=== PATIENT | female | born 1960 | race Caucasian/White ===

== ENCOUNTER 2025-03-18 03:45 | Emergency (ER) | payer MEDICARE, SELFPAY ==
--- OUTSIDE RECORDS SUMMARY | 2025-01-31 11:00 | XMS_ITS | Encounter Summary ---
Author Organization [facility] Address [address] [place] [address] [address] [place] [address] Care Team Providers Care Boom Master Name Role Phone Ann Martínez Primary Care Provider [phone] Ann Martínez Unavailable [phone] Reason for Referral * [facility] Proc/Supply (Routine) - AuthorizedSpecialtyDiagnoses / Procedures Referred By ContactReferred To Contact Procedures INFLUENZA (FLUAD) IM VACCINE - 65 YEARS AND UP [facility] FLU VACCINE ADJUVANT IM Ann Martínez PA [address] [facility] [place] [address] Phone: tel: fax: Referral IDStatusReasonStart DateExpiration DateVisits RequestedVisits [id number] Continuity of Care MASTER Reason for Visit * ReasonCommentsAWV-Annual Medicare Wellness VisitPatient is here for medicare exam. Encounter Details DateTypeDepartmentCare Team (Latest Contact Info)Ysschnjsjzh91/12/2025 11:00 AM CSTOffice Visit [facility] [address] [place] [id number] Ann Martínez PA [address] [facility] [place] [address] Routine general medical examination at a health care facility (Primary Dx); Hypothyroidism (acquired); Raynaud's disease without gangrene; History of colon polyps; Screening, lipid; Screening for osteoporosis; Postmenopause; Screening mammogram for breast cancer; Chronic pain of left knee; Finger pain, right Discharge Disposition: Home, Self Care Social History Tobacco UseTypesPacks/DayYears UsedDateSmoking Tobacco: FormerCigarettes0.311 Started: 1976Smokeless Tobacco: Never Comments:No vaping Alcohol UseStandard Drinks/WeekCommentsYes0 (1 standard drink = 0.6 oz pure alcohol)occasionalPHQ-2AnswerDate RecordedPHQ-9 Total (Adult) Humiliation, Afraid, Rape, and Kick questionnaireAnswerDate RecordedWithin the last year, have you been afraid of your partner or ex-partner?No01/31/2025Within the last year, have you been humiliated or emotionally abused in other ways by your partner or ex-partner?No01/31/2025Within the last year, have you been kicked, hit, slapped, or otherwise physically hurt by your partner or ex-partner?No01/31/2025Within the last year, have you been raped or forced to have any kind of sexual activity by your partner or ex-partner?No01/31/2025 Social Connection and Isolation PanelAnswerDate RecordedIn a typical week, how many times do you talk on the phone with family, friends, or neighbors?Twice a week01/31/2025How often do you get together with friends or relatives?Three times a week01/31/2025How often do you attend nondenominational or adventism services?More than 4 times per year01/31/2025Do you belong to any clubs or organizations such as nondenominational groups, unions, fraternal or athletic groups, or school groups?Yes 01/31/2025How often do you attend meetings of the clubs or organizations you belong to?More than 4 times per year01/31/2025re you , , , , never , or living with a partner?Fxptoat4201/31/2025 AUDIT-CAnswerDate RecordedFrequency of Alcohol ConsumptionNot on file01/31/2025 Q2: How many drinks containing alcohol do you have on a typical day when you are drinking?1 or Q3: How often do you have six or more drinks on one occasion?Never01/31/2025Overall Financial Resource Strain (CARDIA)AnswerDate RecordedHow hard is it for you to pay for the very basics like food, housing, medical care, and heating?Not hard at all01/31/2025[facility] - Occupational Stress QuestionnaireAnswerDate RecordedDo you feel stress - tense, restless, nervous, or anxious, or unable to sleep at night because yourmind is troubled all the time - these days?Not at all01/31/2025 Exercise Vital SignAnswerDate RecordedOn average, how many days per week do you engage in moderate to strenuous exercise (like a brisk walk)?7 days01/31/2025On average, how many minutes do you engage in exercise at this level?50 min 01/31/2025Hunger Vital SignAnswerDate RecordedWithin the past 12 months, you worried that your food would run out before you got the money to buymore.Never true01/31/2025Within the past 12 months, the food you bought just didn't last and you didn't have money to get more.Never true01/31/2025PRAPARE - TransportationAnswerDate RecordedIn the past 12 months, has lack of transportation kept you from medical appointments or from getting medications?No 01/31/2025In the past 12 months, has lack of transportation kept you from meetings, work, or from getting things needed for daily living?No01/31/2025 Housing Stability Vital SignAnswerDate RecordedIn the last 12 months, was there a time when you were not able to pay the mortgage or rent on time?No01/31/2025In the past 12 months, how many times have you moved where you were living?0 01/31/2025t any time in the past 12 months, were you homeless or living in a custodial (including now)?No01/31/2025B1300 Health LiteracyAnswerDate RecordedHow often do you need to have someone help you when you read instructions, pamphlets, or other written material from your doctor or pharmacy?Never 01/31/2025HC UtilitiesAnswerDate RecordedIn the past 12 months has the electric, gas, oil, or water company threatened to shut off services in your home?No01/31/2025buse/NeglectAnswerDate RecordedMember of Clubs or OrganizationsNot on file01/31/2025Does the patient display any signs or symptoms of abuse or neglect?No01/31/2025Sexually ActiveBirth ControlPartnersCommentsNot CurrentlyCommentsNoSex and Gender InformationValueDate RecordedSex Assigned at BirthNot on fileLegal AxpXpmrbm86/11/2019 6:32 PM CSTGender Identity Not on fileSexual OrientationNot on filedocumented as of this encounter Last Filed Vital Signs Vital SignReadingTime TakenCommentsBlood Ekawwmmo718/7001/31/2025 10:35 AM SHIPMASTER Moria197401/31/2025 10:35 AM ZFVWgzshrkvjqu02 ??C (96.8 ??F)01/31/2025 10:35 AM CSTRespiratory Eicn249804/02/2024 10:35 AM CSTOxygen Saturation--Inhaled Oxygen Concentration--Gvnlgc09.4 kg (157 lb 6.4 oz)01/31/2025 10:35 AM BDLWntemy860.3 cm (5' 9)01/31/2025 10:35 AM CSTBody Mass Index23.24104/02/2024 10:35 AM SHIPMASTER documented in this encounter Functional Status * QuestionAnswerDate of AssessmentAuthorQ2: How many drinks containing alcohol do you have on a typical day when you are drinking?1 or 10:45 AM Poppy Mendez LPNQ3: How often do you have six or more drinks on one occasion?Never01/31/2025 10:45 AM Poppy Mendez LPN * Do you have difficulty with walking, balance, climbing stairs, or had a fall in the last 3 months?AnswerDate of IjkdxkogkzXuybdkEd17/12/2025 10:49 AM SHIPMASTER Poppy Duron LPN documented as of this encounter Progress Notes * Poppy Duron LPN - 01/31/2025 11:28 AM CST Katie Ahmadi 1960 Patient Height: Ht Readings from Last 1 Encounters: 01/31/25 175.3 cm (69) Patient Weight (lbs): Wt Readings from Last 1 Encounters: 01/31/25 71.4 kg (157 lb 6.4 oz) Menopause Age: 49 something maybe 56 Female White Referring Physician : juan Are you immobilized? no Are you at increased risk for falls? no Have you have a previous hip and/or vertebral fracture? no Have you had any fractures during your adult life that did not result from significant trauma? (E.g. auto accident)? no Did either of your parents ever have a hip fracture? no Non smoker Have you ever taken Glucocorticoids x 3 months? (Steroid/prednisone) no Has a doctor diagnosed you with rheumatoid arthritis? no Has a doctor diagnosed you with secondary osteoporosis? no Do you drink 3 or more alcoholic drinks per day? no Do you regularly consume dairy products? yes Are you being treated for osteoporosis? no Are you taking any of the following medications *Actonel (risedronate) no *Evista (raloxifene) no *Fosamax (alendronate) no *Miacalcin (calcitonin) no *Reclast (zoledronate) no *Vitamin D yes *Calcium yes *Boniva (ibandronate) no *Forteo (parathyroid hormone) no *HRT (estrogen/hormone therapy) no *Prolia no *Evenity no *Thyroid medication yes *Atelvia no *Zometa no *Tymlos no Have you EVER been told you have any of the follow: *Asthma no *COPD no *HyperPARAthyroid no *Crohn's Disease no *Breast Cancer no MASTER MASTER * Ann Martínez PA - 01/31/2025 10:59 AM CST Assessment / Plan Routine general medical examination at a health care facility - Follow Up [facility] 1 Yr Medicare Annual Wellness Visit with Lab; Future Hypothyroidism (acquired) - THYROID PANEL (FT4/TSH); Future Raynaud's disease without gangrene - COMPLETE BLOOD COUNT WITH DIFFERENTIAL; Future - COMPREHENSIVE METABOLIC PANEL; Future History of colon polyps Screening, lipid - LIPID PANEL; Future Screening for osteoporosis - DEXA SCAN; Future Postmenopause - DEXA SCAN; Future Screening mammogram for breast cancer - MAMMOGRAM GAY DIGITAL SCREENING KINDRA; Future Chronic pain of left knee Finger pain, right Other orders - INFLUENZA (FLUAD) IM VACCINE - 65 YEARS AND UP Assessment & Plan 1. Right little finger swelling: - Swelling and itching in the right middle finger since September after overextending it while camping. Slight improvement noted. - If the condition worsens or becomes more bothersome, an orthopedic consultation and x-rays will be considered. 2. Left knee pain: - Occasional left knee pain that is currently improving. Able to take long walks without significant issues. - If the pain worsens, an orthopedic consultation will be considered. 3. Dry nasal cavities: - Dry nasal cavities likely due to cooler months. - Auhm-nks-zhtnhck saline nasal sprays and Hamden gel are recommended. Using a humidifier at home may also help alleviate symptoms. 4. History of colon polyps: - History of colon polyps and family history of colon cancer (mother). No blood in stools, abdominal pain, changes in bowel movements, constipation, or diarrhea. - Last colonoscopy was in 2020. A consult with Dr. Eric has been placed for further discussion regarding a colonoscopy. 5. Health maintenance: - Blood pressure is well-controlled. - Mammogram will be ordered as she is due for her annual screening. A DEXA scan will be conducted to assess bone density. Laboratory tests will be performed to evaluate anemia, kidney function, liverfunction, electrolyte balance, cholesterol levels, and thyroid function. - Influenza vaccine will be administered today. 6. Raynaud's- Continue use of nifedipine in the winter months. 7. Hypothyroidism- Continue levothyroxine and liothyronine. Thyroid labs will be done today. Plan: Follow up with Ann Martínez in about 1 year (around 01/31/2026). Follow Up Orders Placed This Encounter Procedures Follow Up [facility] 1 Yr Medicare Annual Wellness Visit with Lab Medicare Annual Wellness Visit with Lab Standing Status: Future Expected Date: 01/31/2026 Expiration Date: 07/31/2026 Scheduling Instructions: Medicare Annual Wellness Visit with Lab Reason for Follow Up: Medicare AWV HPI / History / ROS HPI History of Present Illness The patient presents for her annual checkup. She reports persistent swelling in her right little finger, which she attributes to an overextension injury sustained in 09/2024 while camping. The swelling is accompanied by itching, but there was no immediate bruising or swelling post- injury. She does not experience any difficulty in bending or moving the finger and reports no functional impairment. She suspects a tendon injury and notes a slight improvement in her condition. She also mentions a previous issue with her left knee, which has since improved, allowing her to walk without pain. She reports dryness in her nasal cavities, which she attributes to the cooler months. She uses Hamden gel for relief. She has a history of polyps and is due for a colonoscopy next year. Her last colonoscopy was performed in 2020. She reports no presence of blood in her stools, abdominal pain, changes in bowel movements, constipation, or diarrhea. She uses MiraLAX as needed for constipation. She is uncertain about the need for a mammogram and has never undergone a DEXA scan. She is currently on levothyroxine 50 mcg daily and liothyronine 5 mcg twice daily. She takes nifedipine during thewinter months for Raynaud's disease and has recently resumed this medication. She reports feeling lightheaded if she takes nifedipine in the morning without food. She has been fasting for blood work today, consuming only black coffee. She recently donated blood and reports no anemia. She is not interested in updating her immunizations today. She reports no recent illnesses, fever, chills, or coldsymptoms. She had a urinary tract infection in 11/2024, but her symptoms have since resolved. She reports no dysuria, hematuria, urinary frequency, chest pain, shortness of breath, wheezing, or persistent cough. She reports no palpitations, skipped beats, leg swelling, headaches, anxiety, or depression. She reports good sleep quality. She does not require any medication refills at this time. Coffee/Tea/Caffeine-containing Drinks: Drinks black coffee, 2 cups daily Sleep: Reports good sleep quality FAMILY HISTORY Her mother had colon cancer. PATIENT REPORTED HPI Question 01/31/2025 10:02 AM SHIPMASTER - Filed by Patient Why are you seeking care at this visit? Welcome to Medicare appointment. What other information or goals are important for us to know for this visit? Lab work for medication. Medications Outpatient Medications Prior to Visit Medication Sig Dispense Refill NIFEdipine (ADALAT CC) 30 mg SR tablet (24 hr) Take 1 tablet (30 mg) by mouth 1 time per day cranberry-vitamin c (AZO) 250-30 MG tablet Take 1 tablet by mouth 1 time per day liothyronine (CYTOMEL) 5 MCG TABS Take 1 tablet (5 mcg) by mouth 2 times a day 180 tablet 3 levothyroxine 50 mcg tablet Take 1 tablet (50 mcg) by mouth 1 time a day before breakfast 90 tablet3 biotin 10 mg/mL SUSP Take 1 mL (10 mg) by mouth 1 time per day CALCIUM-VITAMIN D PO Take 1 tablet by mouth 1 time per day Multiple Vitamin (MULTIVITAMIN ADULT PO) Take 1 tablet by mouth 1 time per day vitamin D3, cholecalciferol, (D2000 ULTRA STRENGTH) 50 mcg (2000 unit) capsule Take 1 capsule (2,000 Units) by mouth 1 time per day ferrous sulfate (65 MG FE PER 325 MG TABLET) 325 mg tablet Take 1 tablet (325 mg) by mouth 1 time per day polyethylene glycol (MIRALAX) 17 g packet Take 1 packet (17 g) by mouth 1 time a day as needed dehydroepiandrosterone (DHEA) 25 MG TABS tablet Take 1 tablet (25 mg) by mouth 1 time per day magnesium oxide 250 MG TABS Take 1 tablet (250 mg) by mouth 1 time per day No facility-administered medications prior to visit. Allergies Not on File Medical/Surgical/Family/Social History Past Medical History: Diagnosis Date History of abnormal cervical Pap smear cryotherapy Thyroid disease Past Surgical History: Procedure Laterality Date COLONOSCOPY 08/21/2011 COLONOSCOPY 09/19/2012 COLONOSCOPY 03/22/2017 irregular polyps, repeat in 3 years COLONOSCOPY 03/22/2020 DISKECTOMY ANTERIOR CERVICAL 1 INTERSPACE 07/21/2023 C5-6-7 RELEASE CARPAL TUNNEL BILATERAL Bilateral 03/22/1998 Family History Problem Relation Name Age of Onset Colon Polyps Mother Colorectal Cancer Mother 79 Chronic Obstructive Pulmonary Disease Mother Skin Cancer (non melanomatous) Father Social History Socioeconomic History Marital status: Tobacco Use Smoking status: Former Average packs/day: 0.3 packs/day for 11.0 years (2.8 ttl pk-yrs) Types: Cigarettes Start date: 1976 Smokeless tobacco: Never Tobacco comments: No vaping Substance and Sexual Activity Alcohol use: Yes Comment: occasional Drug use: Never Sexual activity: Not Currently Social Drivers of Health Physical Activity: Sufficiently Active (01/31/2025) Exercise Vital Sign Days of Exercise per Week: 7 days Minutes of Exercise per Session: 50 min Stress: No Stress Concern Present (01/31/2025) [employer] - Occupational Stress Questionnaire Feeling of Stress: Not at all Social Connections: Moderately Integrated (01/31/2025) Social Connection and Isolation Panel Frequency of Communication with Friends and Family: Twice a week Frequency of Social Gatherings with Friends and Family: Three times a week Attends Yarsanism Services: More than 4 times per year Active Member of Clubs or Organizations: Yes Attends Club or Organization Meetings: More than 4 times per year Marital Status: Financial Resource Strain: Low Risk (01/31/2025) Overall Financial Resource Strain (CARDIA) Difficulty of Paying Living Expenses: Not hard at all Food Insecurity: No Food Insecurity (01/31/2025) Hunger Vital Sign Worried About Running Out of Food in the Last Year: Never true Ran Out of Food in the Last Year: Never true Transportation Needs: No Transportation Needs (01/31/2025) PRAPARE - Transportation Lack of Transportation (Medical): No Lack of Transportation (Non-Medical): No Alcohol Use: Not At Risk (01/31/2025) AUDIT-C Frequency of Alcohol Consumption: Not on file Average Number of Drinks: 1 or 2 Frequency of Binge Drinking: Never ROS Review of Systems Constitutional: Negative for chills and fever. HENT: Negative for congestion, nosebleeds and sinus pain. Respiratory: Negative for cough, shortness of breath and wheezing. Cardiovascular: Negative for chest pain, palpitations and leg swelling. Gastrointestinal: Negative for abdominal pain, blood in stool, constipation, diarrhea, nausea and vomiting. Genitourinary: Negative for dysuria and hematuria. Musculoskeletal: Knee pain improving Neurological: Negative for dizziness, light-headedness and headaches. Psychiatric/Behavioral: Negative for dysphoric mood and sleep disturbance. The patient is not nervous/anxious. Physical / Results BP 118/70 (Patient Position: Sitting) Pulse 78 Temp 96.8 ??F (36 ??C) (Temporal) Resp 20 Ht 1.753 m(5' 9) Wt 71.4 kg (157 lb 6.4 oz) ? No BMI 23.24 kg/m2 Physical Exam Vitals and nursing note reviewed. Constitutional: General: She is not in acute distress. Appearance: Normal appearance. She is normal weight. She is not ill-appearing or toxic-appearing. HENT: Head: Normocephalic and atraumatic. Right Ear: Tympanic membrane, ear canal and external ear normal. There is no impacted cerumen. Left Ear: Tympanic membrane, ear canal and external ear normal. There is no impacted cerumen. Mouth/Throat: Mouth: Mucous membranes are moist. Pharynx: Oropharynx is clear. No oropharyngeal exudate or posterior oropharyngeal erythema. Cardiovascular: Rate and Rhythm: Normal rate and regular rhythm. Heart sounds: Normal heart sounds. No murmur heard. No friction rub. No gallop. Pulmonary: Effort: Pulmonary effort is normal. No respiratory distress. Breath sounds: Normal breath sounds. No stridor. No wheezing, rhonchi or rales. Abdominal: General: Abdomen is flat. Bowel sounds are normal. There is no distension. Palpations: There is no mass. Tenderness: There is no abdominal tenderness. There is no guarding. Hernia: No hernia is present. Musculoskeletal: Right lower leg: No edema. Left lower leg: No edema. Lymphadenopathy: Cervical: No cervical adenopathy. Neurological: General: No focal deficit present. Mental Status: She is alert. Mental status is at baseline. Cranial Nerves: No cranial nerve deficit. Motor: No weakness. Gait: Gait normal. Deep Tendon Reflexes: Reflexes normal. Psychiatric: Mood and Affect: Mood normal. Behavior: Behavior normal. Thought Content: Thought content normal. Judgment: Judgment normal. Physical Exam Results Labs - Lipid Panel: HDL was higher, rest of the cholesterol levels were normal Patient or home furnishings sales representative communicated understanding of plan and education received. Verbal consent to record conversation that was used to create this note was obtained from the patient/guardian. Assessment / Plan Routine general medical examination at a health care facility - Follow Up [facility] 1 Yr Medicare Annual Wellness Visit with Lab; Future Hypothyroidism (acquired) - THYROID PANEL (FT4/TSH); Future Raynaud's disease without gangrene - COMPLETE BLOOD COUNT WITH DIFFERENTIAL; Future - COMPREHENSIVE METABOLIC PANEL; Future History of colon polyps Screening, lipid - LIPID PANEL; Future Screening for osteoporosis - DEXA SCAN; Future Postmenopause - DEXA SCAN; Future Screening mammogram for breast cancer - MAMMOGRAM GAY DIGITAL SCREENING KINDRA; Future Chronic pain of left knee Finger pain, right Other orders - INFLUENZA (FLUAD) IM VACCINE - 65 YEARS AND UP Individualized screening schedule, health care maintenance options and preventive measures have been discussed with Katie and written recommendations were provided to her. Follow Up Follow up with Ann Martínez in about 1 year (around 01/31/2026). Follow Up Orders Placed This Encounter Procedures Follow Up [facility] 1 Yr Medicare Annual Wellness Visit with Lab Medicare Annual Wellness Visit with Lab Standing Status: Future Expected Date: 01/31/2026 Expiration Date: 07/31/2026 Scheduling Instructions: Medicare Annual Wellness Visit with Lab Reason for Follow Up: Medicare AWV HPI / History / ROS HPI Katie Ahmadi is a 64yr year old female who presents for a wellness visit. Screening Screening for mood disorders, safety risk and memory issues was completed and reviewed. Hearing and vision testing was completed and reviewed. The 10-year ASCVD risk score (Michael MIRAMONTES, et al., 2019) is: 4.1% Values used to calculate the score: Age: 64 years Clinically relevant sex: Female Is Non- : No Diabetic: No Tobacco smoker: No Systolic Blood Pressure: 118 mmHg Is BP treated: No HDL Cholesterol: 75 mg/dL Total Cholesterol: 188 mg/dL Advanced Care Planning Please refer to advance care questions for patient preferences regarding advanced care planning. Patient stated directives will be followed. Patient Care Team Relationship Specialty Notifications Start End Ann Martínez PA PCP - General Physician Street Roller Engineer Admissions 07/08/23 Ann Martínez PA PCP - Attributed Provider Admissions 01/14/24 Medications Outpatient Medications Prior to Visit Medication Sig Dispense Refill NIFEdipine (ADALAT CC) 30 mg SR tablet (24 hr) Take 1 tablet (30 mg) by mouth 1 time per day cranberry-vitamin c (AZO) 250-30 MG tablet Take 1 tablet by mouth 1 time per day liothyronine (CYTOMEL) 5 MCG TABS Take 1 tablet (5 mcg) by mouth 2 times a day 180 tablet 3 levothyroxine 50 mcg tablet Take 1 tablet (50 mcg) by mouth 1 time a day before breakfast 90 tablet3 biotin 10 mg/mL SUSP Take 1 mL (10 mg) by mouth 1 time per day CALCIUM-VITAMIN D PO Take 1 tablet by mouth 1 time per day Multiple Vitamin (MULTIVITAMIN ADULT PO) Take 1 tablet by mouth 1 time per day vitamin D3, cholecalciferol, (D2000 ULTRA STRENGTH) 50 mcg (2000 unit) capsule Take 1 capsule (2,000 Units) by mouth 1 time per day ferrous sulfate (65 MG FE PER 325 MG TABLET) 325 mg tablet Take 1 tablet (325 mg) by mouth 1 time per day polyethylene glycol (MIRALAX) 17 g packet Take 1 packet (17 g) by mouth 1 time a day as needed dehydroepiandrosterone (DHEA) 25 MG TABS tablet Take 1 tablet (25 mg) by mouth 1 time per day magnesium oxide 250 MG TABS Take 1 tablet (250 mg) by mouth 1 time per day No facility-administered medications prior to visit. Allergies Not on File Medical/Surgical/Family/Social History Past Medical History: Diagnosis Date History of abnormal cervical Pap smear cryotherapy Thyroid disease Past Surgical History: Procedure Laterality Date COLONOSCOPY 08/21/2011 COLONOSCOPY 09/19/2012 COLONOSCOPY 03/22/2017 irregular polyps, repeat in 3 years COLONOSCOPY 03/22/2020 DISKECTOMY ANTERIOR CERVICAL 1 INTERSPACE 07/21/2023 C5-6-7 RELEASE CARPAL TUNNEL BILATERAL Bilateral 03/22/1998 Family History Problem Relation Name Age of Onset Colon Polyps Mother Colorectal Cancer Mother 79 Chronic Obstructive Pulmonary Disease Mother Skin Cancer (non melanomatous) Father Social History Socioeconomic History Marital status: Tobacco Use Smoking status: Former Average packs/day: 0.3 packs/day for 11.0 years (2.8 ttl pk-yrs) Types: Cigarettes Start date: 1977 Smokeless tobacco: Never Tobacco comments: No vaping Substance and Sexual Activity Alcohol use: Yes Comment: occasional Drug use: Never Sexual activity: Not Currently Social Drivers of Health Physical Activity: Sufficiently Active (01/31/2025) Exercise Vital Sign Days of Exercise per Week: 7 days Minutes of Exercise per Session: 50 min Stress: No Stress Concern Present (01/31/2025) [place] [employer] Occupational [employer] - Occupational Stress Questionnaire Feeling of Stress: Not at all Social Connections: Moderately Integrated (01/31/2025) Social Connection and Isolation Panel Frequency of Communication with Friends and Family: Twice a week Frequency of Social Gatherings with Friends and Family: Three times a week Attends Yarsanism Services: More than 4 times per year Active Member of Clubs or Organizations: Yes Attends Club or Organization Meetings: More than 4 times per year Marital Status: Financial Resource Strain: Low Risk (01/31/2025) Overall Financial Resource Strain (CARDIA) Difficulty of Paying Living Expenses: Not hard at all Food Insecurity: No Food Insecurity (01/31/2025) Hunger Vital Sign Worried About Running Out of Food in the Last Year: Never true Ran Out of Food in the Last Year: Never true Transportation Needs: No Transportation Needs (01/31/2025) PRAPARE - Transportation Lack of Transportation (Medical): No Lack of Transportation (Non-Medical): No Alcohol Use: Not At Risk (01/31/2025) AUDIT-C Frequency of Alcohol Consumption: Not on file Average Number of Drinks: 1 or 2 Frequency of Binge Drinking: Never ROS Not done as part of the Wellness Visit. Physical / Results BP 118/70 (Patient Position: Sitting) Pulse 78 Temp 96.8 ??F (36 ??C) (Temporal) Resp 20 Ht 1.753 m(5' 9) Wt 71.4 kg (157 lb 6.4 oz) ? No BMI 23.24 kg/m2 Exam not done as part of the wellness visit MASTER MASTER documented in this encounter Miscellaneous Notes * Patient Instructions - Ann Martínez PA - 01/31/2025 11:00 AM SHIPMASTER In order to keep you healthy, we recommend certain preventive services. Our records indicate that you would be due for the following services in the future: Health Maintenance Due Topic Date Due ??? Pneumococcal Vaccine 50yr + (1 of 1 - PCV) Never done ??? Mammogram 04/07/2024 ??? DEXA/Heel Scan Never done ??? Advance Healthcare Directive document Never done ??? Influenza Vaccine (1) 11/20/2024 ??? Covid-19 Vaccine (2024- season) 2024 ??? TSH Every Year 01/09/2025 ??? TDAP/TD VACCINE (2 - Td or Tdap) 01/17/2025 We identified the following risk factors for you: Refusal of Vaccination: When you are up to date with vaccines, you are protecting yourself and yourloved ones. Vaccines are safe and can prevent or decrease the effects of certain illnesses. Side effects of vaccines are usually mild. Serious side effects are very rare. Please let your healthcare provider know what questions you have. MASTER * Addendum Note - Poppy Duron LPN - 01/31/2025 11:00 AM CSTAddended by: POPPY DURON on: 01/31/2025 11:37 AM Modules accepted: Orders MASTER * Addendum Note - Semaj Alvarado RN - 01/31/2025 11:00 AM CSTAddended by: SEMAJ ALVARADO on: 02/01/2025 08:18 AM Modules accepted: Level of Service MASTER * Addendum Note - Karla Younger LPN - 01/31/2025 11:00 AM CSTAddended by: KARLA YOUNGER on: 02/12/2025 10:21 AM Modules accepted: Orders MASTER documented in this encounter Plan of Treatment DateTypeDepartmentCare Team (Latest Contact Info)Dgglzxsmmzk74/09/2026 11:15 AM CSTAppointment [facility] [address] [place] [address] Karla May, PT [address] [place] [address] documented as of this encounter Procedures Procedure NamePriorityDate/TimeAssociated DiagnosisCommentsMAMMOGRAM GAY DIGITAL SCREENING IQQCycpghx62/19/2025 DEXA DTLEZebouzi50/19/2025 LAB ONLY-COMPLETE BLOOD COUNT WITH HGSYFUAQUIUVJariuyl18/12/2025 11:33 AM SHIPMASTER Raynaud's disease without gangrene THYROID PANEL (FT4/TSH)Saiixyh8201/31/2025 11:33 AM SHIPMASTER Hypothyroidism (acquired) LIPID USPVOIyznelp45/12/2025 11:33 AM SHIPMASTER Screening, lipid NABPiyhlkb88/12/2025 11:33 AM SHIPMASTER Hypothyroidism (acquired) FREE V4Nhzzqdm54/12/2025 11:33 AM SHIPMASTER Hypothyroidism (acquired) COMPREHENSIVE METABOLIC SCSOHKwvtobx68/12/2025 11:33 AM SHIPMASTER Raynaud's disease without gangrene LAB ONLY-COMPLETE BLOOD COUNT WITH XTCYOAOWYXBHCimgean10/12/2025 11:33 AM SHIPMASTER Raynaud's disease without gangrene documented in this encounter Results * DEXA SCAN (02/07/2025)Anatomical RegionLateralityModalitySpineMammography Narrative 02/07/2025 See [facility] everywhere for results. Provider has reviewed results. Authorizing ProviderResult TypeResult StatusKanay MartinDynis PAMAMMOGRAPHYFinal Result * MAMMOGRAM GAY DIGITAL SCREENING KINDRA (02/07/2025)Anatomical RegionLaterality ModalityBreastBilateralMammography Narrative 02/07/2025 See [facility] everywhere for results. Provider has reviewed. Authorizing ProviderResult TypeResult StatusKaylyjuana [facility] PAMAMMOGRAPHYFinal Result * TSH (01/31/2025 11:33 AM SHIPMASTER)ComponentValueRef RangeTest MethodAnalysis Time Performed AtPathologist SignatureTSH1.450.55 - 4.78 uIU/mL02/01/2025 12:52 PM CSTUHD INC - BLUE EARTHSpecimen (Source)Anatomical Location / Laterality Collection Method / VolumeCollection TimeReceived TimeBloodBLOOD SPECIMEN / UnknownVenipuncture / Joapjyp5801/31/2025 11:33 AM CST02/01/2025 12:26 PM SHIPMASTER Narrative Authorizing ProviderResult TypeResult StatusAnn MaritnSelect [facility]ty [facility] BLOODFinal ResultPerforming OrganizationAddressCity/State/ZIP CodePhone Number Anastasiya So [employer] [place]ARD [address] [place] [address] * FREE T4 (01/31/2025 11:33 AM SHIPMASTER)ComponentValueRef RangeTest MethodAnalysis TimePerformed AtPathologist SignatureT4 Free1.10.9 - 1.8 ng/dL02/01/2025 12:52 PM CSTD JOSELUIS - [place] RAMOSSpecimen (Source)Anatomical Location / Laterality Collection Method / VolumeCollection TimeReceived TimeBloodBLOOD SPECIMEN / UnknownVenipuncture / Demwkyv2301/31/2025 11:33 AM CST02/01/2025 12:26 PM SHIPMASTER Narrative Authorizing ProviderResult TypeResult StatusAnn MartinSelect Specialty [facility] BLOODFinal ResultPerforming OrganizationAddressCity/State/[facility] CodePhone Number Anastasiya So [employer] [place] [address] [place] [address] * LAB ONLY-COMPLETE BLOOD COUNT WITH DIFFERENTIAL (01/31/2025 11:33 AM SHIPMASTER) ComponentValueRef RangeTest MethodAnalysis TimePerformed AtPathologist SignatureWBC4.84.0 - 11.0 K/uL01/31/2025 12:06 PM CSTD INC -FAIRMONTRBC4.11 3.80 - 5.30 M/uL01/31/2025 12:06 PM CSTUHD INC -TDUCXTUZKkqkwggpsc10.211.5 - 15.8 g/dL01/31/2025 12:06 PM CSTUHD INC -RHDOFJWDJlzqdwbdar80.735.0 - 45.0 % 01/31/2025 12:06 PM CSTUHD INC -BKFWHIEDPCV39.980.0 - 98.0 fL01/31/2025 12:06 PM CSTUHD INC -YFZBVYBKEWY03.725.5 - 34.0 pg01/31/2025 12:06 PM CSTUHD INC -MIAJTKSWTNLR41.231.5 - 36.5 g/dL01/31/2025 12:06 PM [facility] RDW-CV13.211.5 - 15.5 %01/31/2025 12:06 PM CSTUHD INC -FAIRMONTRDW-SD42.835.5 - 50.0 fl01/31/2025 12:06 PM CSTUHD INC -FAIRMONTPlatelet Lpjkk951494 - 400 K/uL01/31/2025 12:06 PM CSTUHD INC -FAIRMONTMPV9.38.5 - 12.0 fL01/31/2025 12:06 PM CSTUHD INC -FAIRMONTSeg Neut Absolute3.31.8 - 8.0 K/uL01/31/2025 12:06 PM CSTUHD INC -FAIRMONTLymphocytes Absolute0.90.8 - 4.1 K/uL01/31/2025 12:06 PM CSTUHD INC -FAIRMONTMonocytes Absolute0.40.0 - 1.0 K/uL01/31/2025 12:06 PM CSTUHD INC -FAIRMONTEosinophils Absolute0.10.0 - 0.7 K/uL01/31/2025 12:06 PM CSTUHD INC -FAIRMONTBasophil Absolute0.10.0 - 0.2 K/uL01/31/2025 12:06 PM CSTUHD INC -FAIRMONTImmature Granulocyte Absolute<0.040.00 - 0.06 K/uL01/31/2025 12:06 PM CSTUHD INC -FAIRMONTNeutrophils Abs. (Segs and Bands) 3,300/uL01/31/2025 12:06 PM CSTUHD INC -FAIRMONTNeutrophils Yrrucyk26.7% 01/31/2025 12:06 PM CSTUHD INC -FAIRMONTLymphocytes Bqguebv71.3%01/31/2025 12:06 PM CSTUHD INC -FAIRMONTMonocytes Percent9.1%01/31/2025 12:06 PM CSTUHD INC -FAIRMONTImmature Granulocyte Percent0.2%01/31/2025 12:06 PM CSTUHD INC -FAIRMONTEosinophils Percent2.5%01/31/2025 12:06 PM [facility] Basophil Percent1.2%01/31/2025 12:06 PM CSTUHD INC -VLADTSpecimen (Source) Anatomical Location / LateralityCollection Method / VolumeCollection Time Received TimeBloodBLOOD SPECIMEN / UnknownVenipuncture / Ewqfcky8201/31/2025 11:33 AM CST01/31/2025 11:33 AM SHIPMASTER Narrative Authorizing ProviderResult TypeResult StatusAnn Martínez PALAB ONLY ORDERS Final ResultPerforming OrganizationAddressCity/State/ZIP CodePhone Number D JOSELUIS GUTIERREZ [address] [place] [address] * (ABNORMAL) COMPREHENSIVE METABOLIC PANEL (01/31/2025 11:33 AM SHIPMASTER)Component ValueRef RangeTest MethodAnalysis TimePerformed AtPathologist SignatureGlucose 111(H)74 - 106 mg/dL01/31/2025 3:13 PM CSTUHD INC - BLUE ESYVGGRN212 - 23 mg/dL01/31/2025 3:13 PM CSTU[facility] INC - BLUE EARTHCreatinine0.800.55 - 1.02 mg/dL 01/31/2025 3:13 PM CSTUHD INC - BLUE EARTHBUN/Creatinine Ratio12.510.0 - 25.0 01/31/2025 3:13 PM [facility] INC - BLUE RULAPKlxdnl204528 - 145 meq/L104/02/2024 3:13 PM CSTU[facility] INC - BLUE EARTHPotassium4.03.4 - 4.5 meq/L104/02/2024 3:13 PM CSTUHD INC - BLUE DNKXNIkdvwmxy04751 - 107 meq/L104/02/2024 3:13 PM [facility]ST[facility] INC - BLUE LDYVQES94283 - 31 meq/L104/02/2024 3:13 PM CST[facility] INC - BLUE EARTHAnion Gap with K9(L)10 - 20 meq/L104/02/2024 3:13 PM CST[facility] INC - BLUE EARTHCalcium 9.78.7 - 10.4 mg/dL01/31/2025 3:13 PM [facility] - BLUE EARTHProtein Total7.0 5.7 - 8.2 g/dL01/31/2025 3:13 PM CST[facility] INC - BLUE EARTHAlbumin4.43.2 - 4.8 g/dL01/31/2025 3:13 PM CSTD INC - BLUE EARTHAlkaline Fixwgtiimig3246 - 116 U/L104/02/2024 3:13 PM CSTD INC - BLUE EARTHAST - TQPX767 - 34 U/L104/02/2024 3:13 PM CSTD INC - BLUE EARTHALT - EDPT2258 - 49 U/L104/02/2024 3:13 PM SHIPMASTER D INC - BLUE EARTHBilirubin Total0.50.3 - 1.2 mg/dL01/31/2025 3:13 PM CSTD INC - BLUE GRJVSFqi02Ehtji47/12/2025 3:13 PM CSTD INC - BLUE EARTHeGFRcr() 82>=60 mL/min/1.07m86501/31/2025 3:13 PM CSTD INC - BLUE EARTHComment: Estimated GFR calculated using the 2020 CKD-EPI creatinine equationSpecimen (Source)Anatomical Location / LateralityCollection Method / VolumeCollection TimeReceived TimeBloodBLOOD SPECIMEN / UnknownVenipuncture / Htalkpr3801/31/2025 11:33 AM CST01/31/2025 11:33 AM SHIPMASTER Narrative Authorizing ProviderResult TypeResult StatusManhattan Eye, [facility] and [facility] BLOODFinal ResultPerforming OrganizationAddressCity/State/ZIP CodePhone Number D INC [facility] [address] [place] [phone] * (ABNORMAL) LIPID PANEL (01/31/2025 11:33 AM SHIPMASTER)ComponentValueRef RangeTest MethodAnalysis TimePerformed AtPathologist KrvyrniziArufjtpolxx7150 - 199 mg/dL01/31/2025 3:14 PM CSTD INC - BLUE FGFMRCfzertfmpubz497 - 149 mg/dL 01/31/2025 3:14 PM CSTD INC - BLUE NLOOELBD03(H)40 - 60 mg/dL01/31/2025 3:14 PM CSTD INC - BLUE EARTHLDL Xxjtxn167 - 99 mg/dL01/31/2025 3:14 PM CSTD INC - BLUE EARTHSpecimen (Source)Anatomical Location / LateralityCollection Method / VolumeCollection TimeReceived TimeBloodBLOOD SPECIMEN / Unknown Venipuncture / Ehamzpi46/02/2025 11:33 AM CST01/31/2025 11:33 AM SHIPMASTER Narrative Authorizing ProviderResult TypeResult StatusAnn Martínez PALAB BLOODFinal ResultPerforming OrganizationAddressCity/State/ZIP CodePhone Number [facility] [place] [address] [place] [address] [place] [address] documented in this encounter Visit Diagnoses Diagnosis Routine general medical examination at a health care facility- Primary Hypothyroidism (acquired) Unspecified hypothyroidism Raynaud's disease without gangrene History of colon polyps Personal history of colonic polyps Screening, lipid Screening for lipoid disorders Screening for osteoporosis Special screening for osteoporosis Postmenopause Asymptomatic postmenopausal status (age-related) (natural) Screening mammogram for breast cancer Chronic pain of left knee Pain in joint, lower leg Finger pain, right Pain in limb documented in this encounter Care Teams Team MemberRelationshipSpecialtyStart DateEnd Date Ann Martínez PA 1951 [facility] [place] [address] PCP - GeneralPhysician Assistant07/08/23 Ann Martínez PA 1951 [facility] [place] [address] PCP - Attributed Liouqwxl96/25/24documented as of this encounter
--- OUTSIDE RECORDS SUMMARY | 2025-02-01 11:50 | XMS_ITS | Encounter Summary ---
Author Organization [facility] Address [address] [place] [address] [address] [place] [address] Care Team Providers Care Brick Burner Head Name Role Phone Ann Martínez Primary Care Provider [phone] Ann Martínez Unavailable [phone] Reason for Visit * ReasonOnset DateCommentsErroneous encounter-qlqymsehy35/13/2025 Encounter Details DateTypeDepartmentCare Team (Latest Contact Info)Paegnesspbm04/13/2025 11:50 AM CSTErroneous Encounter [facility] [address] [place] [address] [address] [place] [address] Omi Eric MD [facility] [place] [address] Encounters for administrative purpose (Primary Dx) Discharge Disposition: Home, Self Care Social History [...] times a week01/31/2025How often do you attend alevism or congregational services?More than 4 times per year01/31/2025Do you belong to any clubs or organizations such as alevism groups, unions, fraZen99 or athletic groups, or school groups?Yes 01/31/2025How often do you attend meetings of the clubs or organizations you belong to?More than 4 times per year01/31/2025re you , , , , never , or living with a partner?Etqeigk2201/31/2025 AUDIT-CAnswerDate RecordedFrequency of Alcohol ConsumptionNot on file01/31/2025 Q2: How many drinks containing alcohol do you have on a typical day when you are drinking?1 or Q3: How often do you have six or more drinks on one occasion?Never01/31/2025Overall Financial Resource Strain (CARDIA)AnswerDate RecordedHow hard is it for you to pay for the very basics like food, housing, medical care, and heating?Not hard at all01/31/2025[facility] [place] [facility] - Occupational Stress QuestionnaireAnswerDate [...] were you homeless or living in a mcc (including now)?No01/31/2025B1300 Health LiteracyAnswerDate RecordedHow often do you need to have someone help you when you read instructions, pamphlets, or other written material from your doctor or pharmacy?Never 01/31/2025HC UtilitiesAnswerDate RecordedIn the past 12 months has the [employer], gas, oil, or water [employer] threatened to shut off services in your home?No01/31/2025buse/NeglectAnswerDate RecordedMember of Clubs or OrganizationsNot on file01/31/2025Does the patient display any signs or symptoms of abuse or neglect?No01/31/2025Sexually ActiveBirth ControlPartnersCommentsNot CurrentlyCommentsNoSex and Gender InformationValueDate RecordedSex Assigned at BirthNot on fileLegal LhbYrxyyn17/11/2019 6:32 PM CSTGender Identity Not on fileSexual OrientationNot on filedocumented as of this encounter Functional Status * Do you have difficulty with walking, balance, climbing stairs, or had a fall in the last 3 months?AnswerDate of SfmgxarhhnIcyqcnIo06/12/2025 10:49 AM AMMONIA TECHNICIAN Poppy Duron LPN documented as of this encounter Progress Notes * Mya Desai RN - 02/01/2025 12:14 PM CST Erroneous Encounter - Disregard NIA TECHNICIAN documented in this encounter Plan of Treatment DateTypeDepartmentCare Team (Latest Contact Info)Jzkbfrpypku99/09/2026 11:15 AM CSTAppointment [facility] Therapy [address] [place] [address] Karla May, PT [address] [place] [address] documented as of this encounter Visit Diagnoses Diagnosis Encounters for administrative purpose- Primary Encounters for unspecified administrative purpose documented in this encounter Care Teams Team MemberRelationshipSpecialtyStart DateEnd Date Ann Martínez PA 1951 [facility] [place] [address] PCP - GeneralPhysician Assistant07/08/23 Ann Martínez PA 1951 [facility] [place] [address] PCP - Attributed Qbbqhwzt45/25/24documented as of this encounter
--- OUTSIDE RECORDS SUMMARY | 2025-02-07 07:42 | XMS_ITS | Encounter Summary ---
Author Organization [facility] Address [address] [place] [address] Care Team Providers Care Senior Oracle Soa Developer Name Role Phone Elsewhere, Pcp Primary Care Provider Unavailabl e Reason for Referral * Outpatient (Routine) - ClosedSpecialtyDiagnoses / ProceduresReferred By ContactReferred To Contact Diagnoses Screening Mammogram Average Risk Patient Procedures BI Breast Screening Bilateral with Tomosynthesis Ann Martínez P.A.-C. [address] [place] [address] Phone: tel: fax: [facility] Region Referral IDStatusReasonStart DateExpiration DateVisits RequestedVisits [id number]/[id number]/13/202711 PREPARER Reason for Visit * Outpatient (Routine) - ClosedSpecialtyDiagnoses / ProceduresReferred By ContactReferred To Contact Diagnoses Screening Mammogram Average Risk Patient Procedures BI Breast Screening Bilateral with Tomosynthesis Ann Martínez P.A.-C. [address] [place] [address] Phone: tel: fax: [facility] Region Referral IDStatusReasonStart DateExpiration DateVisits RequestedVisits [id number]/13/[id number] Encounter Details DateTypeDepartmentCare Team (Latest Contact Info)Jkmlabdqqvi46/19/2025 7:42 AM CSTHospital Encounter Department of Radiology in [address] [place] [address] Ann Martínez P.A.-C. [address] [place] [address] Screening Mammogram Average Risk Patient Discharge Disposition: Home or Self Care Social History Tobacco UseTypesPacks/DayYears UsedDateSmoking Tobacco: BasjqkSwowsemmkq9Oall: 1988Smokeless Tobacco: NeverHumiliation, Afraid, Rape, and Kick questionnaire AnswerDate RecordedWithin the last year, have you been afraid of your partner or ex-partner?No06/03/2021Within the last year, have you been humiliated or emotionally abused in other ways by your partner or ex-partner?No06/03/2021 Within the last year, have you been kicked, hit, slapped, or otherwise physically hurt by your partner or ex-partner?No06/03/2021Within the last year, have you been raped or forced to have any kind of sexual activity by your part ner or ex-partner?No06/03/2021Hunger Vital SignAnswerDate RecordedWithin the past 12 months, you worried that your food would run out before you got the money to buymore.Never true06/03/2021Within the past 12 months, the food you bought just didn't last and you didn't have money to get more.Never true 06/03/2021RAPARE - TransportationAnswerDate RecordedIn the past 12 months, has lack of transportation kept you from medical appointments or from getting medications?No06/03/2021In the past 12 months, has lack of transportation kept you from meetings, work, or from getting things needed for daily living?No 06/03/2021Housing Stability Vital SignAnswerDate RecordedIn the last 12 months, was there a time when you were not able to pay the mortgage or rent on time?No 06/03/2021In the last 12 months, how many places have you lived?In the last 12 months, was there a time when you did not have a steady place to sleep or slept in [facility] (including now)?No06/03/2021EducationAnswerDate RecordedWhat is the highest level of school you have completed or the highest degree you have received?12th grade06/03/2021CommentsNoSex and Gender InformationValueDate RecordedSex Assigned at CedoySlgivb91/20/2021 10:24 AM FOOD PREPARER Legal JitFhzdmn99/02/2017 1:04 PM CSTGender WpbwvewlGukxqe59/20/2021 10:24 AM CSTSexual EpfzlupbnhkJipbzvyf01/20/2021 10:24 AM CSTdocumented as of this encounter Medications at Time of Discharge MedicationSigDispense QuantityRefillsLast FilledStart DateEnd Date BIOTIN ORAL Take 1 capsule by mouth daily. calcium carbonate-vitamin D2 500 mg(1,250mg) -200 unit tablet Take 1 tablet by mouth daily. cholecalciferol (VITAMIN D3) 2,000 Unit capsule Take 2,000 Units by mouth daily. Takes 5,000 intl units daily ferrous sulfate 325 mg (65 mg iron) tablet Take 325 mg by mouth daily. levothyroxine (for_SYNTHROID, LEVOTHROID) 50 mcg tablet Take 50 mcg by mouth once daily. liothyronine (for_CYTOMEL) 5 mcg tablet Take 5 mcg by mouth 2 (two) times a day. MULTIVIT WITH MINERALS/LUTEIN (MULTIVITAMIN 50 PLUS ORAL) daily.06/11/2016 NIFEdipine (ADALAT CC) 30 mg ER tablet Take 15 mg by mouth as needed. polyethylene glycol (MIRALAX) 17 gram powder packet Take 17 g by mouth daily. prasterone, dhea, 25 mg tablet Take by mouth daily.documented as of this encounter Plan of Treatment Not on file documented as of this encounter Procedures Procedure NamePriorityDate/TimeAssociated DiagnosisCommentsBI BREAST SCREENING BILATERAL WITH TOMOSYNTHESISRAD - Routine (most inpatients and all outpatients) 02/07/2025 8:13 AM FOOD PREPARER Screening Mammogram Average Risk Patient documented in this encounter Results * BI Breast Screening Bilateral with Tomosynthesis (02/07/2025 8:13 AM FOOD PREPARER) Anatomical RegionLateralityModalityBreast, Breast Imaging RST LOS, Breast Imaging ARZ LOS, Breast Imaging FLA LOSBilateralMammographySpecimen (Source) Anatomical Location / LateralityCollection Method / VolumeCollection Time Received Time Impressions 02/07/2025 8:23 AM FOOD PREPARER Negative. RECOMMENDATION: ??Annual Screening Mammogram ASSESSMENT: ??BI-RADS: 1: Negative. Narrative 02/07/2025 8:23 AM FOOD PREPARER EXAM: BI BREAST SCREENING BILATERAL WITH TOMOSYNTHESIS Current study was evaluated with a Computer Aided Detection (CAD) system. INDICATION: ??Screening mammogram. COMPARISON: ??Prior exam(s) were available and reviewed for comparison. DENSITY: ??b. There are scattered areas of fibroglandular density. FINDINGS: ??No findings of malignancy. ??No significant change since prior exam. Procedure Note William Sherwood M.D. - 02/07/2025 EXAM: BI BREAST SCREENING BILATERAL WITH TOMOSYNTHESIS Current study was evaluated with a Computer Aided Detection (CAD) system. INDICATION: Screening mammogram. COMPARISON: Prior exam(s) were available and reviewed for comparison. DENSITY: b. There are scattered areas of fibroglandular density. FINDINGS: No findings of malignancy. No significant change since priorexam. IMPRESSION: Negative. RECOMMENDATION: Annual Screening Mammogram ASSESSMENT: BI-RADS: 1: Negative. Authorizing ProviderResult TypeResult StatusKanay Martínez P.A.-C.IM BI PROCEDURESFinal Result documented in this encounter Visit Diagnoses Diagnosis Screening Mammogram Average Risk Patient documented in this encounter Care Teams Team MemberRelationshipSpecialtyStart DateEnd Date Elsewhere, Pcp PCP - GeneralInternal Uranptwy27/8/21documented as of this encounter
--- OUTSIDE RECORDS SUMMARY | 2025-02-07 07:43 | XMS_ITS | Encounter Summary ---
Author Organization [facility] Address [address] [place] [address] Care Team Providers Care Spray Drier Name Role Phone Elsewhere, Pcp Primary Care Provider Unavailabl e Reason for Referral * Outpatient (Routine) - ClosedSpecialtyDiagnoses / ProceduresReferred By ContactReferred To Contact Diagnoses Screening Osteoporosis Status Post Menopausal Procedures BMD Bone Density Spine Hips Ann Martínez P.A.-C. [address] [place] [address] Phone: tel: fax: [facility] Region Referral IDStatusReasonStart DateExpiration DateVisits RequestedVisits [id number]/13/20252/13/202711 J2EE ARCHITECT Reason for Visit * Outpatient (Routine) - ClosedSpecialtyDiagnoses / ProceduresReferred By ContactReferred To Contact Diagnoses Screening Osteoporosis Status Post Menopausal Procedures BMD Bone Density Spine Hips Ann Martínez P.A.-C. [address] [place] [address] Phone: tel: fax: [facility] Region Referral IDStatusReasonStart DateExpiration DateVisits RequestedVisits [id number]/13/20252/13/202711 Encounter Details DateTypeDepartmentCare Team (Latest Contact Info)Mxlirgcxpce30/19/2025 7:43 AM JAVA J2EE ARCHITECT - 02/07/2025 11:59 PM CSTHospital Encounter Department of Radiology in [address] [place] [address] Ann Martínez P.A.-C. [address] [place], [place] [address] Screening Osteoporosis; Status Post Menopausal Discharge Disposition: Home or Self Care Social History Tobacco UseTypesPacks/DayYears UsedDateSmoking Tobacco: DshihwKvwvegqcvh2Jibo: 1987Smokeless Tobacco: NeverHumiliation, Afraid, Rape, and Kick questionnaire [...] steady place to sleep or slept in ashelter (including now)?No06/03/2021EducationAnswerDate RecordedWhat is the highest level of school you have completed or the highest degree you have received?12th grade06/03/2021CommentsNoSex and Gender InformationValueDate RecordedSex Assigned at IxomzXgysga45/20/2021 10:24 AM JAVA J2EE ARCHITECT Legal ThyKetzfm05/02/2017 1:04 PM CSTGender IyqbjgizRzusmg12/20/2021 10:24 AM CSTSexual FvmysexpmvwYsvankmz78/20/2021 10:24 AM CSTdocumented as of this encounter [...] as of this encounter Procedures Procedure NamePriorityDate/TimeAssociated DiagnosisCommentsBMD BONE DENSITY SPINE HIPSRAD - Routine (most inpatients and all outpatients)02/07/2025 8:30 AM JAVA J2EE ARCHITECT Screening Osteoporosis Status Post Menopausal documented in this encounter Results * BMD Bone Density Spine Hips (02/07/2025 8:30 AM JAVA J2EE ARCHITECT)Anatomical Region LateralityModalityHip, Lumbar Spine, Nuclear Medicine RST LOS, Musculoskeletal ARZ LOS, Muskuloskeletal FLA LOSN/ARadiographic ImagingSpecimen (Source) Anatomical Location / LateralityCollection Method / VolumeCollection Time Received Time Impressions 02/07/2025 9:49 AM JAVA J2EE ARCHITECT Normal bone mineral density. Narrative 02/07/2025 9:49 AM JAVA J2EE ARCHITECT EXAM: BMD BONE DENSITY SPINE HIPS Bone Mineral Density (BMD) analysis performed on [employer] with serial number [id number]. ? FINDINGS: Left Hip: Femur Neck: BMD = 1.255 g/cm2 T-score = 1.6 ?Z-score = 2.9 Total Hip: BMD = 1.174 g/cm2 T-score = 1.3 ?Z-score = 2.4 Right Hip: Femur Neck: BMD = 1.231 g/cm2 T-score = 1.4 ?? Z-score = 2.7 Total Hip: BMD = 1.187 g/cm2 T-score = 1.4 ?Z-score = 2.5 Lumbar Spine: L1: BMD = 1.465 g/cm2 L4: BMD = 1.461 g/cm2 Total Lumbar Spine (L1-L4 (L2,L3)): BMD = 1.463 g/cm2 T-score = 2.3 ?Z-score = 3.7 ? Trabecular Bone Score: ??L1-L4 (L2,L3): TBS = 1.435 < 1.23: low 1.23 -1.31: borderline ?? > 1.31: normal ?? A low TBS has been associated with increased risk of fractures in certain populations. TBS should not be used alone to determine treatment recommendations. It can be used in conjunction with BMD and FRAX to inform management. Please note: A more comprehensive DXA report, including images and graphs, is available in [employer]. In the absence of other causes of low BMD or demonstrated skeletal fragility, osteoporosis may be diagnosed in post-menopausal women and men at or above age 50 when the T-score is at or below -2.5 asdefined by the WHO. Low bone density is present at T-scores between -1 and -2.5. The diagnosis in pre-menopausal women and men < age 50 can be based on low bone density or evidence of skeletal fragility in the appropriate clinical setting. Based on the bone density results, and on the patient's answers to the Fracture Risk Assessment questionnaire (please refer to appropriate image stored in the BMD study in [employer]), the calculated ten year probability of fracture is: FRAX: Patient does not meet ISCD guidelines for FRAX calculations. ?? Procedure Note Mohit Luis Jr., M.D. - 02/07/2025 EXAM: BMD BONE DENSITY SPINE HIPS Bone Mineral Density (BMD) analysis performed on [employer] withserial number [id number]. FINDINGS: Left Hip: Femur Neck: BMD = 1.255 g/cm2 T-score = 1.6 Z-score = 2.9 Total Hip: BMD = 1.174 g/cm2 T-score = 1.3 Z-score = 2.4 Right Hip: Femur Neck: BMD = 1.231 g/cm2 T-score = 1.4 Z-score = 2.7 Total Hip: BMD = 1.187 g/cm2 T-score = 1.4 Z-score = 2.5 Lumbar Spine: L1: BMD = 1.465 g/cm2 L4: BMD = 1.461 g/cm2 Total Lumbar Spine (L1-L4 (L2,L3)): BMD = 1.463 g/cm2 T-score = 2.3 Z-score = 3.7 Trabecular Bone Score: L1-L4 (L2,L3): TBS = 1.435 < 1.23: low 1.23 -1.31: borderline > 1.31: normal A low TBS has been associated with increased risk of fractures in certain populations. TBS should not be used alone to determine treatmentrecommendations. It can be used in conjunction with BMD and FRAX to informmanagement. Please note: A more comprehensive DXA report, including images and graphs,is available in [employer]. In the absence of other causes of low BMD or demonstrated skeletalfragility, osteoporosis may be diagnosed in post-menopausal women and menat or above age 50 when the T-score is at or below -2.5 as defined by theWHO. Low bone density is present at T-scores between -1 and -2.5. Thediagnosis in pre-menopausal women and men < age 50 can be based on lowbone density or evidence of skeletal fragility in the appropriate clinicalsetting. Based on the bone density results, and on the patient's answers to theFracture Risk Assessment questionnaire (please refer to appropriate imagestored in the BMD study in [employer]), the calculated ten yearprobability of fracture is: FRAX: Patient does not meet ISCD guidelines for FRAX calculations. IMPRESSION: Normal bone mineral density. Authorizing ProviderResult TypeResult StatusAnn Martínez P.A.-C.Jorge Luis DXA PROCEDURESFinal Result documented in this encounter Visit Diagnoses Diagnosis Screening Osteoporosis Status Post Menopausal documented in this encounter Care Teams Team MemberRelationshipSpecialtyStart DateEnd Date Elsewhere, Pcp PCP - GeneralInternal Gqruscnv15/8/21documented as of this encounter
--- OUTSIDE RECORDS SUMMARY | 2025-02-14 01:03 | XMS_ITS | Encounter Summary ---
Author Organization [facility] Address [address] [place] [address] Care Team Providers Care Inspector Hot Forgings Name Role Phone Elsewhere, Pcp Primary Care Provider Unavailabl e Reason for Visit * ReasonCommentsChest PainPatient reports approx 1 hour ago she developed a sensation in her upper mid chest that she describes as potentially a burning, it just doesn't feel right. Worse when laying down, denies injury or trauma. 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 Otherwise feels normal. Encounter Details DateTypeDepartmentCare Team (Latest Contact Info)Rmzbmqloguz46/26/2025 1:03 AM MARKET MANAGER - 02/14/2025 5:17 AM CSTEmergency [address] [place] [phone] Dori Kimball D.O. [address] [place] [phone] Other Chest Pain (Primary Dx) Discharge Disposition: Home or Self Care Social History Tobacco UseTypesPacks/DayYears UsedDateSmoking Tobacco: TxzzfrWraspzfqai6Hmtu: 1987Smokeless Tobacco: NeverHumiliation, Afraid, Rape, and Kick [...] steady place to sleep or slept in [facility] (including now)?No06/03/2021EducationAnswerDate RecordedWhat is the highest level of school you have completed or the highest degree you have received?12th grade06/03/2021CommentsNoSex and Gender InformationValueDate RecordedSex Assigned at TbgimWmgkoo88/20/2021 10:24 AM MARKET MANAGER Legal MdzRigrcb68/02/2017 1:04 PM CSTGender UkernlhbIilwky39/20/2021 10:24 AM CSTSexual AplisyfhlcwHyacnxmu73/20/2021 10:24 AM CSTdocumented as of this encounter Last Filed Vital Signs Vital SignReadingTime TakenCommentsBlood Dxcerghx948/7002/14/2025 5:15 AM MARKET MANAGER Fmuss926302/14/2025 5:15 AM IDNMrmzhhoihnz92 ??C (96.8 ??F)02/14/2025 1:19 AM MARKET MANAGER Respiratory Jhqa830704/16/2024 5:15 AM CSTOxygen Craxsjchux05%02/14/2025 5:15 AM CSTInhaled Oxygen Concentration--Qtotdj90.9 kg (152 lb)02/14/2025 1:20 AM MARKET MANAGER Jtqsob861.3 cm (5' 9)02/14/2025 1:20 AM CSTBody Mass Index22.45104/16/2024 1:20 AM CSTdocumented in this encounter Functional Status * ED Fall Risk Assessment ToolQuestionAnswerDate of AssessmentAuthorHistory of Falling in Last Three Months Including Since Olkqfbrfc097/26/2025 1:24 AM Annamarie Wilde R.N.Confusion or Vbdxyffyfucntp411/26/2025 1:24 AM Annamarie Summers R.N.Intoxicated or Cjgxksr720 1:24 AM Annamarie Summers R.N.Impaired Bhup822 1:24 AM Annamarie Summers R.N.Mobility Assist Device Psuj456 1:24 AM Annamarie Summers R.N.Altered Elimination0 02/14/2025 1:24 AM Annamarie Summers R.N.Fall Risk Ovuvp025 1:24 AM Annamarie Summers R.N. * Abuse IndicatorsQuestionAnswerDate of AssessmentAuthorIs there a history, concern, or exposure to physical, emotional, sexual, financial abuse, neglect or domestic violence?No02/14/2025 1:24 AM Annamarie Summers R.N.Information OysdotGnzgtct39/26/2025 1:24 AM Annamarie Summers R.N. * BMI: Desirable <25, High Risk >30AnswerDate of AssessmentAuthorDesirable 02/14/2025 1:20 AM Annamarie Summers R.N. * Additional Fall Risk IndicationQuestionAnswerDate of AssessmentAuthor Clinically assessed at higher fall risk?No02/14/2025 1:24 AM Annamarie Summers R.N. * AnthropometricsQuestionAnswerDate of AssessmentAuthorBMI (Calculated)22.4 02/14/2025 1:20 AM Annamarie Summers R.N. * Pain AssessmentQuestionAnswerDate of AssessmentAuthorPain LocationChest 02/14/2025 1:20 AM Annamarie Summers R.N.Pain GcenitbwmlgWgwbd99/26/2025 1:20 AM Annamarie Summers R.N.Pain DescriptorsBurning;Other (Comment) 02/14/2025 1:20 AM Annamarie Summers R.N.Pain TypeAcute pain02/14/2025 1:20 AM Annamarie Summers R.N.Pain Eznuj97604/16/2024 1:20 AM Annamarie Summers R.N. * Fall Risk Scale and AssessmentsQuestionAnswerDate of AssessmentAutPhysicians Care [facility] Risk ScaleED Fall Risk Assessment Tool02/14/2025 1:24 AM Annamarie Summers R.N. documented as of this encounter Discharge Instructions * Discharge Instructions* Dori Kimball D.O. - 02/14/2025 5:16 AM MARKET MANAGER You were seen for abnormal sensation in the lower throat/upper chest. Your testing did not show anyheart attack or emergent heart problems fortunately; however, given the symptoms you had we want you to follow up with primary care and possibly cardiology, especially if you have repeat symptoms, for further heart evaluation as we cannot rule out underlying cardiovascular disease with our tests inthe ER, only that you have not had a heart attack. You should return to the ED if you develop worsening lightheadedness, sweating with exertion, chest pain, shortness of breath, fever, abnormal sweating, leg swelling, abdominal pain, or any other new or concerning symptoms. Happy Thanksgiving! ET MANAGER * Attachments The following attachments cannot be sent through Care Everywhere. * Nonspecific Chest Pain Adult ([place]) documented in this encounter Medications at Time of Discharge [...] by mouth daily.documented as of this encounter ED Notes * Dori Kimball D.O. - 02/14/2025 5:16 AM CST The patient verbally consented to an audio recording of their visit to assist with the completion of documentation. SUBJECTIVE: CHIEF COMPLAINT/REASON FOR VISIT: Chest Pain (Patient reports approx 1 hour ago she developed a sensation in her upper mid chest thatshe describes as potentially a burning, it just doesn't feel right. Worse when laying down, denies injury or trauma. 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 Katie Rodriguez is a 64 year old female who presents with a strange sensation at the base of her throat. She describes the sensation as feeling like gas or air bubbles at the base of herthroat, occurring while lying down in bed. There is no associated pain. She initially dismissed thesymptoms but sought medical attention due to concerns about potential heart issues, especially since she lives alone after the recent passing of her and dog. No associated symptoms such as nausea, shortness of breath, drenching sweat, or changes in her ability to walk due to shortness of breath or chest pain. No new or different leg swelling. She has no history of diabetes, hypertension, or hyperlipidemia. She quit smoking in the . Shedoes not suffer from acid reflux or indigestion and has not had any recent changes in diet, such asincreased intake of greasy, fatty, or spicy foods, or alcohol. She mentions eating at a normal timebefore going bowling, which she does as part of a league. 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 No distress. HENT: Head: Normocephalic and atraumatic. Nose: Nose normal. Mouth/Throat: Oropharynx is clear and moist. Mucous membranes are moist. Eyes: EOM are normal. Pupils are equal, round, and reactive to light. Neck: No JVD present. Cardiovascular: Normal rate, regular rhythm and normal heart sounds. Pulses are palpable. Capillaryrefill: takes less than 3 secondsEdema: no edema noted Pulmonary/Chest: Effort normal and breath sounds normal. Abdominal: Soft. There is no abdominal tenderness. Musculoskeletal: General: Normal range of motion. Cervical back: Normal range of motion. Neurological: Alert and oriented to person, place, and time. Skin: Skin is warm, dry and normal color. Psychiatric: She has a normal mood and affect. Behavior is normal. INTERVENTIONS: Medications fentaNYL (Sublimaze) 50 mcg/mL injection - ADS Override Pull ( Not Given 11/26/25 0153) ondansetron (PF) (Zofran) 4 mg/2 mL injection - ADS Override Pull ( Not Given 02/14/25152) sodium chloride 0.9 % injection 3 mL (has no administration in time range) sodium chloride 0.9 % injection 10 mL (has no administration in time range) sodium chloride 0.9 % injection 3 mL (has no administration in time range) aspirin chewable tablet 324 mg (324 mg oral Given 02/14/25216) LABS: Labs Reviewed BASIC METABOLIC PANEL, S/P Result Value Potassium, P 3.6 Sodium, P 141 Chloride, P 103 Bicarbonate, P 26 Anion Gap, P 12 BUN (Blood Urea Nitrogen), P 16 Creatinine 0.77 Estimated GFR (eGFR) 86 Calcium, Total, P 9.1 Glucose, P 122 TROPONIN T, BASELINE, 5TH GEN, P Troponin T, Baseline, 5th gen 8 CBC WITH DIFFERENTIAL, B Hemoglobin 12.6 Hematocrit 38.8 Erythrocytes 4.33 MCV 89.6 RBC Distrib Width 13.4 Platelet Count 195 Leukocytes 5.3 Neutrophils 3.51 Lymphocytes 1.09 Monocytes 0.50 Eosinophils 0.17 Basophils 0.05 TROPONIN T, 2H/6H REFLEX, 5TH GEN, P Troponin T, 2 hr, 5th gen 8 2H Delta 0 2H Delta Interp Not Changing ECG: ECG 12 Lead Result Date: 02/14/2025 Normal sinus rhythm Nonspecific ST abnormality No previous ECGs available Reviewed by DRISS Cedeno RADIOLOGY: DX Chest AP or PA and Lateral 2 Views Final Result No comparison. Negative for acute cardiopulmonary abnormality. Previous lower ACDF. Medical Decision Making A 64-year-old woman with no history of diabetes, hypertension, hyperlipidemia, or recent tobacco use presented with an intermittent, non-painful sensation at the base of her throat, described as a gas bubble, without associated nausea, shortness of breath, or diaphoresis. She denied recent changes in diet, acid reflux, or indigestion, and her physical exam was unremarkable with clear lungs and noabdominal tenderness. Initial ECG was normal and she was clinically stable. Labs showing no HE or electrolyte derangements, CBC without anemia or leukocytosis. Troponins laterally. Doubt PE or aortic syndrome. EKG reviewed and independently interpreted as NSR without acute ischemic changes. CXR reviewed with my independent interpretation in agreement with radiology. A broad differential appropriate for patient's underlying medical conditions, chief complaint, HPI,and physical exam was considered; however, the patient's clinical presentation is most consistent with chest pain of undetermined etiology, but doubt life threatening etiology based on diagnostics above including: EKG and CXR, which were reviewed and independently interpreted as no acute ischemic changes and in agreement with radiology; lateral troponins; stable hemodynamics; well appearance; resolution of symptoms; and clinical presentation. No indication for escalation of care with admission. Discussed with the patient all findings and diagnostic testing as well as the need to follow up with PCP, and possibly cardiology, for further evaluation and treatment or return to the ED if any new or worsening symptoms. Strict return precautions were also discussed at length. Patient voiced understanding and agreement with the plan. Hemodynamically stable at time of disposition. DIAGNOSIS: Final diagnoses: [R07.89] Other Chest Pain [1] Past Medical History: Diagnosis Date Hypothyroidism Raynaud's Disease [2] Past Surgical History: Procedure Laterality Date COLONOSCOPY - POSSIBLE BIOPSY N/A 01/17/2018 Procedure: COLONOSCOPY - POSSIBLE BIOPSY; Surgeon: Tracie Valencia M.D.; Location: [facility] COLONOSCOPY - POSSIBLE BIOPSY N/A 03/17/2021 Procedure: COLONOSCOPY - POSSIBLE BIOPSY; Surgeon: Tracie Valencia M.D.; Location: [facility] DECOMPRESSION OF MEDIAN NERVE N/A 06/23/1997 Carpal tunnel release DECOMPRESSION OF MEDIAN NERVE N/A 06/23/1997 Carpal tunnel release EXCISION OF CERVICAL INTERVERTEBRAL DISC N/A 08/15/2003 Cervical discectomy [3] Social History Socioeconomic History Marital status: Highest education level: 12th grade Tobacco Use Smoking status: Former Current packs/day: 0.00 Types: Cigarettes Quit date: 1987 Years since quittin.9 Smokeless tobacco: Never Social Drivers of Health Food Insecurity: No Food Insecurity (01/31/2025) [facility] from [facility] Hunger Vital Sign Within the past 12 months, you worried that your food would run out before you got the money to buymore.: Never true Within the past 12 months, the food you bought just didn't last and you didn't have money to get more.: Never true Transportation Needs: No Transportation Needs (01/31/2025) Received from [facility] PRAPARE - Transportation In the past 12 months, has lack of transportation kept you from medical appointments or from getting medications?: No In the past 12 months, has lack of transportation kept you from meetings, work, or from getting things needed for daily living?: No Intimate Partner Violence: Not At Risk (01/31/2025) Received from [facility], [facility] Humiliation, Afraid, Rape, and Kick questionnaire Within the last year, have you been afraid of your partner or ex-partner?: No Within the last year, have you been humiliated or emotionally abused in other ways by your partner or ex-partner?: No Within the last year, have you been kicked, hit, slapped, or otherwise physically hurt by your partner or ex-partner?: No Within the last year, have you been raped or forced to have any kind of sexual activity by your partner or ex-partner?: No Housing Stability: Low Risk (01/31/2025) Received from [facility] Housing Stability Vital Sign In the last 12 months, was there a time when you were not able to pay the mortgage or rent on time?: No In the past 12 months, how many times have you moved where you were living?: 0 At any time in the past 12 months, were you homeless or living in a usp (including now)?: No Dori Kimball D.O. 02/18/25124 ET MANAGER documented in this encounter Plan of Treatment Not on file documented as of this encounter Procedures Procedure NamePriorityDate/TimeAssociated DiagnosisCommentsTROPONIN T, 2H/6H REFLEX, 5TH GEN, MGsiuw9602/14/2025 4:13 AM MARKET MANAGER DX CHEST AP OR PA AND LATERAL 2 VIEWSRAD - Semiurgent (Fast; most ED patients; some inpatients)02/14/2025 2:27 AM MARKET MANAGER BASIC METABOLIC PANEL, S/PSTAT104/16/2024 2:05 AM MARKET MANAGER TROPONIN T, BASELINE, 5TH GEN, PSTAT11/ 2:04 AM MARKET MANAGER CBC WITH DIFFERENTIAL, BSTAT104/16/2024 2:04 AM MARKET MANAGER ITCAzpfctq98/26/2025 1:05 AM MARKET MANAGER documented in this encounter Results * Troponin T, 2 Hour with 6 Hour Reflex, 5th Gen (02/14/2025 4:13 AM MARKET MANAGER) ComponentValueRef RangeTest MethodAnalysis TimePerformed AtPathologist SignatureTroponin T, 2 hr, 5th gen8<=10 ng/L104/16/2024 5:02 AM NNJVMQQ0A Delta 0ng/L104/16/2024 5:02 AM CSTFRMTComment:6 hour collection not indicated.2H Delta InterpNot Hwamsglf05/26/2025 5:02 AM CSTFRMTSpecimen (Source)Anatomical Location / LateralityCollection Method / VolumeCollection TimeReceived Time Blood02/14/2025 4:13 AM CST02/14/2025 4:43 AM MARKET MANAGER Narrative Authorizing ProviderResult TypeResult StatusDori Kimball D.O.LAB BLOOD TROPONINFinal ResultPerforming OrganizationAddressCity/State/ZIP CodePhone Number [facility] [place] [address], [facility] in [address] [address] * DX Chest AP or PA and Lateral 2 Views (02/14/2025 2:27 AM MARKET MANAGER)Anatomical RegionLateralityModalityChest, Thoracic RST LOS, Thoracic ARZ LOS, Thoracic FLA LOSN/ADigital RadiographySpecimen (Source)Anatomical Location / Laterality Collection Method / VolumeCollection TimeReceived Time Impressions 02/14/2025 2:35 AM MARKET MANAGER No comparison. Negative for acute cardiopulmonary abnormality. Previous lower ACDF. Narrative 02/14/2025 2:35 AM MARKET MANAGER EXAM: DX CHEST AP OR PA AND LATERAL 2 VIEWS Procedure Note Mynor Zhang M.D. - 02/14/2025 EXAM: DX CHEST AP OR PA AND LATERAL 2 VIEWS IMPRESSION: No comparison. Negative for acute cardiopulmonary abnormality. Previouslower ACDF. Authorizing ProviderResult TypeResult StatusDori Kimball D.O.IMG DIAGNOSTIC IMAGING PROCEDURESFinal Result * Basic Metabolic Panel (02/14/2025 2:05 AM MARKET MANAGER)ComponentValueRef RangeTest MethodAnalysis TimePerformed AtPathologist SignaturePotassium, P3.63.6 - 5.2 mmol/L104/16/2024 2:31 AM CSTFRMTSodium, N456032 - 145 mmol/L104/16/2024 2:31 AM CSTFRMTChloride, B65759 - 107 mmol/L104/16/2024 2:31 AM CSTFRMTBicarbonate, P 2622 - 29 mmol/L104/16/2024 2:31 AM CSTFRMTAnion Gap, P127 - 15104/16/2024 2:31 AM CSTFRMTBUN (Blood Urea Nitrogen), P166 - 21 mg/dL02/14/2025 2:31 AM CSTFRMT Creatinine0.770.59 - 1.04 mg/dL02/14/2025 2:31 AM CSTFRMTEstimated GFR (eGFR) 86>=60 mL/min/BSA02/14/2025 2:31 AM CSTFRMTComment: Estimated GFR calculated using the 2020 CKD_EPI creatinine equation. Calcium, Total, P9.18.8 - 10.2 mg/dL02/14/2025 2:31 AM CSTFRMTGlucose, W93158 - 140 mg/dL02/14/2025 2:31 AM CSTFRMTSpecimen (Source)Anatomical Location / LateralityCollection Method / VolumeCollection TimeReceived TimeBlood (Blood, Venous)02/14/2025 2:05 AM CST02/14/2025 2:11 AM MARKET MANAGER Narrative Authorizing ProviderResult TypeResult StatusDori Kimball D.O.LAB BLOOD ADD-ON Final ResultPerforming OrganizationAddressCity/State/ZIP CodePhone Number [address] [address], [facility] in [address] [address] * CBC with Differential, Blood (02/14/2025 2:04 AM MARKET MANAGER)ComponentValueRef Range Test MethodAnalysis TimePerformed AtPathologist RvnkramgqRgxdiuwdah26.611.6 - 15.0 g/dL02/14/2025 2:13 AM BUPMDYZLiauandzok37.835.5 - 44.9 %02/14/2025 2:13 AM CSTFRMTErythrocytes4.333.92 - 5.13 x10(12)/L104/16/2024 2:13 AM CSTFRMTMCV 89.678.2 - 97.9 fL02/14/2025 2:13 AM CSTFRMTRBC Distrib Width13.412.2 - 16.1 % 02/14/2025 2:13 AM CSTFRMTPlatelet Wvyzf578942 - 371 x10(9)/L104/16/2024 2:13 AM CSTFRMTLeukocytes5.33.4 - 9.6 x10(9)/L104/16/2024 2:13 AM CSTFRMT Neutrophils3.511.56 - 6.45 x10(9)/L104/16/2024 2:13 AM CSTFRMTLymphocytes1.09 0.95 - 3.07 x10(9)/L104/16/2024 2:13 AM CSTFRMTMonocytes0.500.26 - 0.81 x10(9)/L104/16/2024 2:13 AM CSTFRMTEosinophils0.170.03 - 0.48 x10(9)/L 02/14/2025 2:13 AM CSTFRMTBasophils0.050.01 - 0.08 x10(9)/L104/16/2024 2:13 AM CSTFRMTSpecimen (Source)Anatomical Location / LateralityCollection Method / VolumeCollection TimeReceived TimeBlood (Blood, Venous)02/14/2025 2:04 AM MARKET MANAGER 02/14/2025 2:11 AM MARKET MANAGER Narrative Authorizing ProviderResult TypeResult StatusDori Kimball D.O.LAB BLOOD ADD-ON Final ResultPerforming OrganizationAddressCity/State/ZIP CodePhone Number [facility]- [address] [address], [facility] in [address] [address] * Troponin T, Baseline with 2 Hour/6 Hour Reflex Biomarker Panel (02/14/2025 2:04 AM MARKET MANAGER)ComponentValueRef RangeTest MethodAnalysis TimePerformed At Pathologist SignatureTroponin T, Baseline, 5th gen8<=10 ng/L104/16/2024 2:31 AM CSTFRMTSpecimen (Source)Anatomical Location / LateralityCollection Method / VolumeCollection TimeReceived TimeBlood (Blood, Venous)02/14/2025 2:04 AM MARKET MANAGER 02/14/2025 2:11 AM MARKET MANAGER Narrative Authorizing ProviderResult TypeResult StatusDori Kimball D.O.LAB BLOOD TROPONINFinal ResultPerforming OrganizationAddressCity/State/ZIP CodePhone Number [address] [address], [facility] in [address] [address] * ECG 12 Lead (02/14/2025 1:05 AM MARKET MANAGER)ComponentValueRef RangeTest MethodAnalysis TimePerformed AtPathologist SignatureVentricular Rate ECG/Anb12TTFSTMNMI Lhijvmdd753wvQBQKUQOT Pegcjrqz07obTOLGZF Wdmzrwoa536bwSPDFRLY Bmhjcuye967ed MUSEP Kocp47gxcqncaLRWXP Nsim85ijwyqbyORPCT Wave Qoix61moarthrRNQPWgkjibdz (Source)Anatomical Location / LateralityCollection Method / VolumeCollection TimeReceived Time02/14/2025 1:05 AM CST02/14/2025 1:11 AM MARKET MANAGER Impressions MUSE - 02/14/2025 1:11 AM MARKET MANAGER Normal sinus rhythm Nonspecific ST abnormality No previous ECGs available Reviewed by DRISS Cedeno Narrative Procedure Note Enoch Rosas M.D. - 02/14/2025 IMPRESSION: Normal sinus rhythm Nonspecific ST abnormality No previous ECGs available Reviewed by DRISS Cedeno Authorizing ProviderResult TypeResult StatusDori Kimball D.O.ECG ORDERABLES Final ResultPerforming OrganizationAddressCity/State/ZIP CodePhone Number MUSE NA documented in this encounter Visit Diagnoses Diagnosis Other Chest Pain- Primary documented in this encounter Administered Medications Medication OrderMAR ActionAction DateDoseRateSite aspirin chewable tablet 324 mg 324 mg, oral, Once, On Wed02/14/25 at 0155, For 1 dose Given02/14/2025 2:17 AM RVF816 mg sodium chloride 0.9 % injection 10 mL 10 mL, intravenous, As needed, line care, Starting on Wed02/14/25 at 0154, Peripheral Intravenous Catheter and Rapid Infusion Catheter, prior to blood sampling, post blood transfusion or post blood sampling sodium chloride 0.9 % injection 3 mL 3 mL, intravenous, As needed, line care, Starting on Wed02/14/25 at 0154, Prior to and following infusion and between multiple consecutive infusions: sodium chloride 0.9 % injection sodium chloride 0.9 % injection 3 mL 3 mL, intravenous, Every 12 hours scheduled, First dose on Wed02/14/25 at 0900, Peripheral Intravenous Catheter and Rapid Infusion Catheter, when no infusion to maintain patency documented in this encounter Active and Recently Administered Medications Times are shown in MARKET MANAGER.Medication Order/ aspirin chewable tablet 324 mg (COMPLETED) 324 mg, oral, Once, On Wed02/14/25 at 0155, For 1 dose * 0217 (Given - Provider: Annamarie Pringle R.N.) sodium chloride 0.9 % injection 3 mL 3 mL, intravenous, Every 12 hours scheduled, First dose on Wed02/14/25 at 0900, Peripheral Intravenous Catheter and Rapid Infusion Catheter, when no infusion to maintain patency Medication Order/ sodium chloride 0.9 % injection 10 mL 10 mL, intravenous, As needed, line care, Starting on Wed02/14/25 at 0154, Peripheral Intravenous Catheter and Rapid Infusion Catheter, prior to blood sampling, post blood transfusion or post blood sampling sodium chloride 0.9 % injection 3 mL 3 mL, intravenous, As needed, line care, Starting on Wed02/14/25 at 0154, Prior to and following infusion and between multiple consecutive infusions: sodium chloride 0.9 % injection documented in this encounter Care Teams Team MemberRelationshipSpecialtyStart DateEnd Date Elsewhere, Pcp PCP - GeneralInternal Fmnnrwpz25/8/21documented as of this encounter
--- OUTSIDE RECORDS SUMMARY | 2025-02-23 11:00 | XMS_ITS | Encounter Summary ---
Author Organization [id number] [facility] Address [address] [place] [address] [address] [place] [address] Care Team Providers Care Monitoring Specialist Name Role Phone Ann Martínez Primary Care Provider [phone] Ann Martínez Unavailable [phone] Reason for Referral * [facility] Radiology (Routine) - AuthorizedSpecialtyDiagnoses / ProceduresReferred By ContactReferred To Contact Diagnoses Partial hamstring tear, initial encounter Procedures MRI EXTREMITY UPPER LEG WITHOUT CONTRAST RT MRI LOWER EXTREMITY OTHER THAN JOINT WO CONTRAST MATL(S) Ann Martínez PA [address] [facility] [place] [address] Phone: tel: fax: Referral IDStatusReasonStart DateExpiration DateVisits RequestedVisits [id number] Continuity of Care 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 Encounter Details DateTypeDepartmentCare Team (Latest Contact Info)Hqsejwlivqj17/05/2025 11:00 AM CSTOffice Visit [facility] [address] [place] [phone] Ann Martínez PA [address] [facility] [place] [id number] Partial hamstring tear, initial encounter (Primary Dx) Discharge Disposition: Home, Self Care [...] times a week01/31/2025How often do you attend druze or yazidism services?More than 4 times per year01/31/2025Do you belong to any clubs or organizations such as druze groups, unions, fraternal or athletic groups, or school groups?Yes 01/31/2025How often do you attend meetings of the clubs or organizations you belong to?More than 4 times per year01/31/2025re you , , , , never , or living with a partner?Mrzfkpv8001/31/2025 AUDIT-CAnswerDate RecordedFrequency of Alcohol ConsumptionNot on file01/31/2025 Q2: How many drinks containing alcohol do you have on a typical day when you are drinking?1 or Q3: How often do you have six or more drinks on one occasion?Never01/31/2025Overall Financial Resource Strain (CARDIA)AnswerDate RecordedHow hard is it for you to pay for the very basics like food, housing, medical care, and heating?Not hard at all01/31/2025[facility] - Occupational Stress QuestionnaireAnswerDate [...] were you homeless or living in a senior living (including now)?No01/31/2025B1300 Health LiteracyAnswerDate RecordedHow often do you need to have someone help you when you read instructions, pamphlets, or other written material from your doctor or pharmacy?Never 01/31/2025HC UtilitiesAnswerDate RecordedIn the past 12 months has the [employer], gas, oil, or water company threatened to shut off services in your home?No01/31/2025buse/NeglectAnswerDate RecordedMember of Clubs or OrganizationsNot on file02/23/2025Does the patient display any signs or symptoms of abuse or neglect?No02/23/2025Sexually ActiveBirth ControlPartnersCommentsNot CurrentlyCommentsNoSex and Gender InformationValueDate RecordedSex Assigned at BirthNot on fileLegal OyuPkubep49/11/2019 6:32 PM CSTGender Identity Not on fileSexual OrientationNot on filedocumented as of this encounter Last Filed Vital Signs Vital SignReadingTime TakenCommentsBlood Lqblpvov126/7602/23/2025 10:55 AM 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 Qqphf278102/23/2025 10:55 AM SISPitonwnfgnj12.5 ??C (97.7 ??F)02/23/2025 10:55 AM CSTRespiratory Jjwy159204/26/2024 10:55 AM CSTOxygen Saturation--Inhaled Oxygen Concentration--Buyerh49 kg (158 lb 11.2 oz)02/23/2025 10:55 AM CSTHeight--Body Mass Index23.44104/02/2024 10:35 AM CSTdocumented in this encounter Functional Status * Do you have difficulty with walking, balance, climbing stairs, or had a fall in the last 3 months?AnswerDate of AezrdrgoykIfvoitJw66/12/2025 10:49 AM 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 Right upper thigh pain: - The symptoms suggest a potential partial tear of the hamstring in the right upper thigh. The painis localized from the glutes to the knee, with no swelling or bruising observed. - The patient reports that the pain is worse in the morning and improves slightly throughout the day. There is no significant pain in the back. - An MRI will be ordered to confirm the diagnosis. Physical therapy will be arranged for further management. - A prescription for naproxen 500 mg, to be taken twice daily with food, will be provided for a 30-day supply. The patient is advised to continue with rest, compression, and elevation of the leg. Light stretching exercises are recommended, while weight-bearing activities should be avoided during this acute phase. Gentle massage can be initiated once the acute injury phase has passed. Plan: No follow-ups on file. No orders of the defined types were placed in this encounter. HPI / History / ROS HPI History of Present Illness The patient presents for evaluation of right upper thigh pain. She reports an incident on 02/16/2025, where she slipped on a wet floor while bowling, resulting john fall. The following day, during a game of tag at her sister's [employer], she experienced a snapping sensation in her right upper thigh, specifically in the hamstring area. She has been managing the pain with rest, ice, compression, and elevation (RICE) therapy, which she believes has slightly improved her condition. She has been using compression wraps and taking Tylenol Rapid Release 500 mg, although she admits to inconsistent use over the past few days. She reports no bruising or swelling in the affected area. The pain, which radiates from her glutes to her knee on the posterior thigh, is exacerbated by movement and rated as an 8 out of 10 in severity during the morning hours. She also reports difficulty in bending over to package pick up something without keeping the leg straight. She does not experience any back pain and does not believe she injured her back. She finds relief when sitting in a recliner with her legs elevated and an ice pack applied. She also reports that gentle massage seems to alleviate the pain. She notes that her pain has been gradually improving since Wednesday.She is considering physical therapy and is interested in understanding what exercises would be beneficial for her condition. Hobbies: Bowling Medications Outpatient Medications Prior to Visit Medication Sig Dispense Refill acetaminophen (TYLENOL) 500 mg tablet Take 2 tablets (1,000 mg) by mouth every 6 hours as needed NIFEdipine (ADALAT CC) 30 mg SR tablet [...] No facility-administered medications prior to visit. Allergies No Known Allergies Medical/Surgical/Family/Social History Past Medical History: Diagnosis Date [...] min Stress: No Stress Concern Present (01/31/2025) [place] [facility] [employer] - Occupational Stress Questionnaire Feeling of Stress: Not at all Social Connections: Moderately Integrated (01/31/2025) Social Connection and Isolation Panel Frequency of Communication with Friends and Family: Twice a week Frequency of Social Gatherings with Friends and Family: Three times a week Attends Adventism Services: More than 4 times per year [...] Binge Drinking: Never ROS Review of Systems Musculoskeletal: Positive for gait problem and myalgias. Neurological: Negative for weakness and numbness. Physical / Results BP 118/76 (Patient Position: Sitting) Pulse 72 Temp 97.7 ??F (36.5 ??C) (Temporal) Resp 16 Wt 72 kg(158 lb 11.2 oz) BMI 23.44 kg/m2 Physical Exam Vitals and nursing note reviewed. Constitutional: General: She is not in acute distress. Appearance: Normal appearance. She is normal weight. She is not ill-appearing or toxic-appearing. Musculoskeletal: Right upper leg: Tenderness (tender to palpation in the upper posterior thigh) present. No swelling, edema, deformity or lacerations. Right lower leg: No edema. Left lower leg: No edema. Neurological: Mental Status: She is alert. Motor: No weakness or atrophy. Psychiatric: Mood and Affect: Mood normal. Behavior: Behavior normal. Thought Content: Thought content normal. Judgment: Judgment normal. Physical Exam Musculoskeletal: No swelling or bruising noted in the right upper thigh. Range of motion and strength of the right knee and hip within normal limits. Pain elicited with extension of the knee against resistance. Results Patient or self pay representative communicated understanding of plan and education received. Verbal consent to record conversation that was used to create this note was obtained from the patient/guardian. 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 documented in this encounter Plan of Treatment DateTypeDepartmentCare Team (Latest Contact Info)Utygjorowtg54/09/2026 11:15 AM CSTAppointment [facility] [address] [place] [address] Karla May, PT [address] [place] [address] NameTypePriorityAssociated DiagnosesOrder ScheduleMRI EXTREMITY UPPER LEG WITHOUT CONTRAST RTImagingRoutine Partial hamstring tear, initial encounter Expected: 02/23/2025 (Approximate), Expires: 03/26/2026documented as of this encounter Visit Diagnoses Diagnosis Partial hamstring tear, initial encounter- Primary documented in this encounter Care Teams Team MemberRelationshipSpecialtyStart DateEnd Date Ann Martínez PA [address] [facility] [place] [id number] PCP - GeneralPhysician Assistant07/08/23 Ann Martínez PA [address] [facility] [place] [address] PCP - Attributed Obcixccy68/25/24documented as of this encounter
[2025-03-18 03:49] VITALS: BP 164/90; PULSE 90; RESP 16; TEMP 36.9; O2SAT 98; BMI 22.2
[2025-03-18 03:55] LABS: Appearance Urine Turbid (Clear)
--- NOTE | 2025-03-18 04:06 | ED_ITS ---
HPI - General Adult General Chief complaint: Urogenital Problems, Female Stated complaint: UTI Time Seen by Provider: 03/18/25 04:05 History of Present Illness HPI narrative: Pt needs an antibiotic for a UTI. Pt has urgency and burning. 64-year-old woman presenting to the emergency department with concern of urinary urgency and dysuria. Has not noted any hematuria. Has a new partner. Had this experience same partner in November of this year and now is reunited. Thinking some lubrication would be important. Has been hydrating. No fever. Related Data Allergies Allergy/AdvReac Type Severity Reaction Status Date / Time No Known Drug Allergies Allergy Verified 03/18/25 03:56 Review of Systems Status of ROS: Reports: 6 or more systems reviewed and unremarkable except as noted in History and below Exam Narrative: Exam Narrative: Very pleasant. With good energy. NAD. Skin is warm and dry. Well-perfused peripherally. No edema. No flank pain. Abdomen otherwise is soft and maybe a little discomfort to palpation of suprapubic area. Genitourinary exam was not done. Const: Vital Signs, click to edit/add: Vital Signs - 24 hr 03/18/25 03:49 Temperature 98.5 F Pulse Rate [Right Pulse Oximeter] 90 Respiratory Rate 16 Blood Pressure [Ri ght Upper Arm] 164/90 H Pulse Oximetry 98 Oxygen Delivery Me thod Room Air Documenting provider has reviewed patient's vital signs: yes Course Vital Signs Vital signs: Initial Vital Signs Temperature 98.5 F 03/18/25 03:49 Temperature Source Temporal Artery Scan 03/18/25 03:49 Pulse Rate 90 03/18/25 03:49 Pulse Rhythm Regular 03/18/25 03:49 Pulse Strength 3+ Normal 03/18/25 03:49 Respiratory Rate 16 03/18/25 03:49 Blood Pressure 164/90 H 03/18/25 03:49 Blood Pressure Mean 114 H 03/18/25 03:49 Blood Pressure Position Sitting 03/18/25 03:49 Pulse Oximetry 98 03/18/25 03:49 Oxygen Delivery Method Room Air 03/18/25 03:49 Vital Signs Temperature 98.5 F 03/18/25 03:49 Pulse Rate 90 03/18/25 03:49 Respiratory Rate 16 03/18/25 03:49 Blood Pressure 164/90 H 03/18/25 03:49 Pulse Oximetry 98 03/18/25 03:49 Oxygen Delivery Method Room Air 03/18/25 03:49 Temperature 98.5 F 03/18/25 03:49 Pulse Rate 90 03/18/25 03:49 Respiratory Rate 16 03/18/25 03:49 Blood Pressure 164/90 H 03/18/25 03:49 Pulse Oximetry 98 03/18/25 03:49 Oxygen Delivery Method Room Air 03/18/25 03:49 Medical Decision Making MDM Narrative Medical decision making narrative: Does appear to have symptoms consistent with urinary tract infection or early cystitis. Is not describing any other vaginal discharge or significant abdominal pain that would warrant evaluation at this time. does not have a kind of pain of associate with ureteral stone and colic. No findings otherwise of nephropathy. Would check urinalysis and proceed from there. Urinalysis looks frankly positive. Nitrite positive so likely Gram-negative organism. Probably e coli. See patient discharge plan for further discussion Continue to stay well-hydrated with water. Can take up to 800 mg of ibuprofen or up to 1000 mg of acetaminophen per dose. Otherwise if you would specifically like to treat the dysuria, phenazopyridine is available [id number]. Can take up to 200 mg per dose. Prescribing, as discussed, cephalexin from [facility]. Will be culturing your urine and call you if changes might need to be made. Lab Data Lab results reviewed: Yes I reviewed the patient's lab results Labs: Lab Results 03/18/25 Range/Units 03:50 Urine Color Red A (Yellow) Urine Appearance Turbid A (Clear) Urine pH 6.0 (5.0-8.5) Ur Specific [place] 1.010 (1.000-1.030) Urine Protein 3+ A (Negative) Urine Glucose (UA) Negative (Negative) Urine Ketones Trace A (Negative) Urine Blood 3+ A (Negative) Urine Nitrite Positive A (Negative) Urine Bilirubin 1+ A (Negative) Urine Urobilinogen 0.2 (0.2-1.0) Ur Leukocyte Esterase 3+ A (Negative) Urine RBC 50-100 A (0-2) Urine WBC 25-50 A (0-5) Ur Squamous Epith Cells Few (None-Few) Urine Bacteria Few A (None) Fine Granular Casts Moderate A (None) Discharge Plan Discharge Clinical Impression: Cystitis, Dysuria Patient Disposition: Home, Self-Care Condition: Stable Additional Instructions: Continue to stay well-hydrated with water. Can take up to 800 mg of ibuprofen or up to 1000 mg of acetaminophen per dose. Otherwise if you would specifically like to treat the dysuria, phenazopyridine is available [id number]. Can take up to 200 mg per dose. Prescribing, as discussed, cephalexin from [facility]. Will be culturing your urine and call you if changes might need to be made. Activity Level: No Restrictions Discharge Diet: Regular Stand Alone Forms: [employer] Info Instructions
--- OUTSIDE RECORDS SUMMARY | 2025-03-18 04:21 | XMS_ITS | Clinical Summary ---
Author Organization [facility] Address [address] [place] [address] Care Team Providers Care Balancer Scale Name Role Phone Elsewhere, Pcp Primary Care Provider Unavailabl e Source Comments Patient records contain information from all sites at [facility]. For routine questions regarding patient records, call [phone] during business hours, M-F 8:00 AM - 5:00 PM Central Time. Record requests for emergency care only can be directed to [phone] at any time.[facility] Allergies No known active allergies Medications * This document contains information received from the source organization and may not represent a complete record from that organization. MedicationSigDispense QuantityRefillsLast FilledStart DateEnd DateStatus liothyronine (for_CYTOMEL) 5 mcg tablet Take 5 mcg by mouth 2 (two) times a day.Active MULTIVIT WITH MINERALS/LUTEIN (MULTIVITAMIN 50 PLUS ORAL) daily.06/11/2016Active levothyroxine (for_SYNTHROID, LEVOTHROID) 50 mcg tablet Take 50 mcg by mouth once daily.Active calcium carbonate-vitamin D2 500 mg(1,250mg) -200 unit tablet Take 1 tablet by mouth daily.Active NIFEdipine (ADALAT CC) 30 mg ER tablet Take 15 mg by mouth as needed.Active ferrous sulfate 325 mg (65 mg iron) tablet Take 325 mg by mouth daily.Active prasterone, dhea, 25 mg tablet Take by mouth daily.Active polyethylene glycol (MIRALAX) 17 gram powder packet Take 17 g by mouth daily.Active cholecalciferol (VITAMIN D3) 2,000 Unit capsule Take 2,000 Units by mouth daily. Takes 5,000 intl units dailyActive BIOTIN ORAL Take 1 capsule by mouth daily.Active Active Problems ProblemNoted DateDiagnosed DatePolyp Colon03/17/20217924Nvidwhozrxdxlh91/23/2021 Refraction Deuweibe28/27/8740Brghjjprjf01/27/2019Floater Vitreous Bilateral 05/18/2018Traction Tuft Retinal Ikdvieagf44/27/2019Hypertrophy Retinal Pigment Epithelial Onihnjumpw41/27/2019Pain Shoulder Right Encounters DateTypeDepartmentCare UwygCoctzssmzow72/26/2025 1:03 AM FRONT DESK COORDINATOR - 02/14/2025 5:17 AM CSTEmergency [address] [place] [address] Dori Kimball D.O. Other Chest Pain (Primary Dx) Discharge Disposition: Home or Self Care02/07/2025 7:43 AM FRONT DESK COORDINATOR - 02/07/2025 11:59 PM CSTHospital Encounter Department of Radiology in [address] [place] [address] Ann Martínez, P.A.-C. Screening Osteoporosis; Status Post Menopausal Discharge Disposition: Home or Self Care02/07/2025 7:42 AM CSTHospital Encounter Department of Radiology in [address] [place] [address] Ann Martínez, P.A.-C. Screening Mammogram Average Risk Patient Discharge Disposition: Home or Self Carefrom Last 3 Months Immunizations ImmunizationAdministration DatesNext DueInfluenza, Ouhglhtiehc91/23/2010, 12/17/2008Td (Adult), porikbiz87/24/2004 Family History Medical HistoryRelationNameCommentsAlcohol abuseBrotherAlcohol abuseFatherCancer FatherMelanomaGrandmotherBreast cancer (in one breast)Mother's SisterBreast cancer (in one breast)Sister 1Breast cancer (in one breast)Sister 2RelationName StatusCommentsAuntBrotherFatherSkinGrandmotherMother's SisterSister 1Sister 2 Social History Tobacco UseTypesPacks/DayYears UsedDateSmoking Tobacco: CmvbheHxviknlpwr9Frbd: 1988Smokeless Tobacco: NeverHumiliation, Afraid, Rape, and Kick [...] grade06/03/2021CommentsNoSex and Gender InformationValueDate RecordedSex Assigned at WchrtLvjqdw63/20/2021 10:24 AM FRONT DESK COORDINATOR Legal PnrJkmjrm17/02/2017 1:04 PM CSTGender RsuzwkkyUpkmpk71/20/2021 10:24 AM CSTSexual ZncwozliyceSrinxsrp03/20/2021 10:24 AM FRONT DESK COORDINATOR Last Filed Vital Signs Vital SignReadingTime TakenCommentsBlood Llxnwrox283/7002/14/2025 5:15 AM FRONT DESK COORDINATOR Ijufp482202/14/2025 5:15 AM HVZRijhrayxrjq50 ??C (96.8 ??F)02/14/2025 1:19 AM FRONT DESK COORDINATOR Respiratory Acle986104/16/2024 5:15 AM CSTOxygen Oiqlzesxzo66%02/14/2025 5:15 AM CSTInhaled Oxygen Concentration--Xkaaep96.9 kg (152 lb)02/14/2025 1:20 AM FRONT DESK COORDINATOR Fpmwda388.3 cm (5' 9)02/14/2025 1:20 AM CSTBody Mass Index22.45104/16/2024 1:20 AM FRONT DESK COORDINATOR Plan of Treatment Health MaintenanceDue DateLast DoneCommentsCT Sxeztysnhxsf62/04/1960Cologuard 1960HIV Vpgkkhqwd63/04/1960Hepatitis C Wgboihmhp53/04/1960Pneumococcal vaccine (50+ years) (1 of 1 - PCV)06/23/2009Depression Screening (Annual PHQ-2) 03/22/2024Fall Risk Screen (Annual)06/23/2024OVID-19 Vaccine ( season), 03/09/2021, 06/20/2020, Additional history exists Thyroid Stimulating Hormone (TSH) test for thyroid zfxrophs08/02/2025, 01/10/20241058Fhmmeircv03, 02/07/2025, 04/07/2023, Additional history existsFasting Glucose for Diabetes Swrlwyaoz19, 01/31/2025, 01/10/20240317Mlgazhvhsgi96, 03/17/2021, 01/17/2018, Additional history existsColorectal Cancer Yjqwsmydembc26/27/2028DTaP,Tdap,and Td Vaccines (3 - Td or Tdap), 01/17/2015, 08/13/2003Zoster IlkfcpixRqkhepsla67/14/2019, 03/04/2018Cervical/Vaginal Cancer Screening Cyxtdnwbdimq72/13/2022, 03/03/2022Influenza IsbjwskVnxhemqih23/12/2025, 01/10/2024, 01/02/2020, Additional history existsBone Density Scan (Osteoporosis Screen)Umnivqxceokh06/19/2025IPV VaccinesAged OutNo longer eligible based on patient's age to complete this topic Medical Devices ImplantedTypeAreaManufacturerDevice IdentifierShelf Expiration DateModel / Serial / LotHardware E.G. Pins/Screws/RodsHardware e.g. pins/screws/rodsNeck Description:Plate and screws from Anterior Diskectomy - Levels 5-6 & 7 Procedures Procedure NamePriorityDate/TimeAssociated DiagnosisCommentsTROPONIN T, 2H/6H REFLEX, 5TH GEN, PYairu1602/14/2025 4:13 AM FRONT DESK COORDINATOR DX CHEST AP OR PA AND LATERAL 2 VIEWSRAD - Semiurgent (Fast; most ED patients; some inpatients)02/14/2025 2:27 AM FRONT DESK COORDINATOR BASIC METABOLIC PANEL, S/PSTAT104/16/2024 2:05 AM FRONT DESK COORDINATOR CBC WITH DIFFERENTIAL, BSTAT104/16/2024 2:04 AM FRONT DESK COORDINATOR TROPONIN T, BASELINE, 5TH GEN, PSTAT104/16/2024 2:04 AM FRONT DESK COORDINATOR GAMYkjutap52/26/2025 1:05 AM FRONT DESK COORDINATOR BMD BONE DENSITY SPINE HIPSRAD - Routine (most inpatients and all outpatients) 02/07/2025 8:30 AM FRONT DESK COORDINATOR Screening Osteoporosis Status Post Menopausal BI BREAST SCREENING BILATERAL WITH TOMOSYNTHESISRAD - Routine (most inpatients and all outpatients)02/07/2025 8:13 AM FRONT DESK COORDINATOR Screening Mammogram Average Risk Patient ZOYPUXUCWXL24/27/2021 1:29 PM FRONT DESK COORDINATOR from Last 3 Months or Most Recently Relevant to Health Maintenance Results * Troponin T, 2 Hour with 6 Hour Reflex, 5th Gen (02/14/2025 4:13 AM FRONT DESK COORDINATOR) ComponentValueRef RangeTest MethodAnalysis TimePerformed AtPathologist SignatureTroponin T, 2 hr, 5th gen8<=10 ng/L104/16/2024 5:02 AM EQEQXDJ6F Delta 0ng/L104/16/2024 5:02 AM CSTFRMTComment:6 hour collection not indicated.2H Delta InterpNot Fizfkpwb84/26/2025 5:02 AM CSTFRMTSpecimen (Source)Anatomical Location / LateralityCollection Method / VolumeCollection TimeReceived Time Blood02/14/2025 4:13 AM CST02/14/2025 4:43 AM FRONT DESK COORDINATOR Narrative Authorizing ProviderResult TypeResult StatusDori Kimball D.O.LAB BLOOD TROPONINFinal ResultPerforming OrganizationAddressCity/State/ZIP CodePhone Number [facility] [place] [address], [facility] [place] [address] * DX Chest AP or PA and Lateral 2 Views (02/14/2025 2:27 AM FRONT DESK COORDINATOR)Anatomical RegionLateralityModalityChest, Thoracic RST LOS, Thoracic ARZ LOS, Thoracic FLA LOSN/ADigital RadiographySpecimen (Source)Anatomical Location / Laterality Collection Method / VolumeCollection TimeReceived Time Impressions 02/14/2025 2:35 AM FRONT DESK COORDINATOR No comparison. Negative for acute cardiopulmonary abnormality. Previous lower ACDF. Narrative 02/14/2025 2:35 AM FRONT DESK COORDINATOR EXAM: DX CHEST AP OR PA AND LATERAL 2 VIEWS Procedure Note Mynor Zhang M.D. - 02/14/2025 EXAM: DX CHEST AP OR PA AND LATERAL 2 VIEWS IMPRESSION: No comparison. Negative for acute cardiopulmonary abnormality. Previouslower ACDF. Authorizing ProviderResult TypeResult StatusDori Kimball D.O.IMG DIAGNOSTIC IMAGING PROCEDURESFinal Result * Basic Metabolic Panel (02/14/2025 2:05 AM FRONT DESK COORDINATOR)ComponentValueRef RangeTest MethodAnalysis TimePerformed AtPathologist SignaturePotassium, P3.63.6 - 5.2 mmol/L104/16/2024 2:31 AM CSTFRMTSodium, A993201 - 145 mmol/L104/16/2024 2:31 AM CSTFRMTChloride, N33816 - 107 mmol/L104/16/2024 2:31 AM CSTFRMTBicarbonate, P26 22 - 29 mmol/L104/16/2024 2:31 AM CSTFRMTAnion Gap, P127 - 15104/16/2024 2:31 AM CSTFRMTBUN (Blood Urea Nitrogen), P166 - 21 mg/dL02/14/2025 2:31 AM CSTFRMT Creatinine0.770.59 - 1.04 mg/dL02/14/2025 2:31 AM CSTFRMTEstimated GFR (eGFR) 86>=60 mL/min/BSA02/14/2025 2:31 AM CSTFRMTComment: Estimated GFR calculated using the 2020 CKD_EPI creatinine equation. Calcium, Total, P9.18.8 - 10.2 mg/dL02/14/2025 2:31 AM CSTFRMTGlucose, Z12262 - 140 mg/dL02/14/2025 2:31 AM CSTFRMTSpecimen (Source)Anatomical Location / LateralityCollection Method / VolumeCollection TimeReceived TimeBlood (Blood, Venous)02/14/2025 2:05 AM CST02/14/2025 2:11 AM FRONT DESK COORDINATOR Narrative Authorizing ProviderResult TypeResult StatusDori Kimball D.O.LAB BLOOD ADD-ON Final ResultPerforming OrganizationAddressCity/State/ZIP CodePhone Number [facility]- [address] [address], [facility] in [address] [address] * Troponin T, Baseline with 2 Hour/6 Hour Reflex Biomarker Panel (02/14/2025 2:04 AM FRONT DESK COORDINATOR)ComponentValueRef RangeTest MethodAnalysis TimePerformed At Pathologist SignatureTroponin T, Baseline, 5th gen8<=10 ng/L104/16/2024 2:31 AM CSTFRMTSpecimen (Source)Anatomical Location / LateralityCollection Method / VolumeCollection TimeReceived TimeBlood (Blood, Venous)02/14/2025 2:04 AM FRONT DESK COORDINATOR 02/14/2025 2:11 AM FRONT DESK COORDINATOR Narrative Authorizing ProviderResult TypeResult StatusDori Kimball D.O.LAB BLOOD TROPONINFinal ResultPerforming OrganizationAddressCity/State/ZIP CodePhone Number [facility]- [address] [address], [facility] in [address] [address] * CBC with Differential, Blood (02/14/2025 2:04 AM FRONT DESK COORDINATOR)ComponentValueRef Range Test MethodAnalysis TimePerformed AtPathologist GdbhgptirPqjbvzrbvd69.611.6 - 15.0 g/dL02/14/2025 2:13 AM VKGETNBWqzkskxxuk86.835.5 - 44.9 %02/14/2025 2:13 AM CSTFRMTErythrocytes4.333.92 - 5.13 x10(12)/L104/16/2024 2:13 AM CSTFRMTMCV 89.678.2 - 97.9 fL02/14/2025 2:13 AM CSTFRMTRBC Distrib Width13.412.2 - 16.1 % 02/14/2025 2:13 AM CSTFRMTPlatelet Zczdo819373 - 371 x10(9)/L104/16/2024 2:13 AM CSTFRMTLeukocytes5.33.4 - 9.6 x10(9)/L104/16/2024 2:13 AM CSTFRMTNeutrophils 3.511.56 - 6.45 x10(9)/L104/16/2024 2:13 AM CSTFRMTLymphocytes1.090.95 - 3.07 x10(9)/L104/16/2024 2:13 AM CSTFRMTMonocytes0.500.26 - 0.81 x10(9)/L104/16/2024 2:13 AM CSTFRMTEosinophils0.170.03 - 0.48 x10(9)/L104/16/2024 2:13 AM CSTFRMT Basophils0.050.01 - 0.08 x10(9)/L104/16/2024 2:13 AM CSTFRMTSpecimen (Source) Anatomical Location / LateralityCollection Method / VolumeCollection Time Received TimeBlood (Blood, Venous)02/14/2025 2:04 AM CST02/14/2025 2:11 AM FRONT DESK COORDINATOR Narrative Authorizing ProviderResult TypeResult StatusDori Kimball D.O.LAB BLOOD ADD-ON Final ResultPerforming OrganizationAddressCity/State/ZIP CodePhone Number [facility]- [address] [address], [facility] [place] [address] * ECG 12 Lead (02/14/2025 1:05 AM FRONT DESK COORDINATOR)ComponentValueRef RangeTest MethodAnalysis TimePerformed AtPathologist SignatureVentricular Rate ECG/Xab46UUGEUGKIR Rtokxeky753fuHLRZTZAF Oxrvcmul07usNOQRYQ Yrwdfanr753wcVBUCTWE Kprcfxwf095sn MUSEP Tnkk60nnqtnyrQJTYZ Deio12gfnsdwwQIAMC Wave Nfvf24favcbucUMWBCfcdzvob (Source)Anatomical Location / LateralityCollection Method / VolumeCollection TimeReceived Time02/14/2025 1:05 AM CST02/14/2025 1:11 AM FRONT DESK COORDINATOR Impressions MUSE - 02/14/2025 1:11 AM FRONT DESK COORDINATOR Normal sinus rhythm Nonspecific ST abnormality No previous ECGs available Reviewed by DRISS Cedeno Narrative Procedure Note Enoch Rosas M.D. - 02/14/2025 IMPRESSION: Normal sinus rhythm Nonspecific ST abnormality No previous ECGs available Reviewed by DRISS Cedeno Authorizing ProviderResult TypeResult Annamaria Kimball D.O.ECG ORDERABLES Final ResultPerforming OrganizationAddressCity/State/ZIP CodePhone Number MUSE NA * BMD Bone Density Spine Hips (02/07/2025 8:30 AM FRONT DESK COORDINATOR)Anatomical Region LateralityModalityHip, Lumbar Spine, Nuclear Medicine RST LOS, Musculoskeletal ARZ LOS, Muskuloskeletal FLA LOSN/ARadiographic ImagingSpecimen (Source) Anatomical Location / LateralityCollection Method / VolumeCollection Time Received Time Impressions 02/07/2025 9:49 AM FRONT DESK COORDINATOR Normal bone mineral density. Narrative 02/07/2025 9:49 AM FRONT DESK COORDINATOR EXAM: BMD BONE DENSITY SPINE HIPS Bone Mineral Density (BMD) analysis performed on SvitStyle with serial number [id number]. ? FINDINGS: Left Hip: Femur Neck: BMD [...] including images and graphs, is available in [employer] [facility]. In the absence of other causes of [...] image stored in the BMD study in Inf[employer]View), the calculated ten year probability of fracture is: FRAX: Patient does not meet ISCD guidelines for FRAX calculations. ?? Procedure Note Mohit Luis Jr., M.D. - 02/07/2025 EXAM: BMD BONE DENSITY SPINE HIPS Bone Mineral Density (BMD) analysis performed on SvitStyle withserial number [id number]. FINDINGS: Left Hip: Femur Neck: BMD = [...] report, including images and graphs,is available in [employer] [facility]. In the absence of other causes of [...] mineral density. Authorizing ProviderResult TypeResult StatusAnn Martínez P.A.-C.IMG DXA PROCEDURESFinal Result * BI Breast Screening Bilateral with Tomosynthesis (02/07/2025 8:13 AM FRONT DESK COORDINATOR) Anatomical RegionLateralityModalityBreast, Breast Imaging RST LOS, Breast Imaging ARZ LOS, Breast Imaging FLA LOSBilateralMammographySpecimen (Source) Anatomical Location / LateralityCollection Method / VolumeCollection Time Received Time Impressions 02/07/2025 8:23 AM FRONT DESK COORDINATOR Negative. RECOMMENDATION: ??Annual Screening Mammogram ASSESSMENT: ??BI-RADS: 1: Negative. Narrative 02/07/2025 8:23 AM FRONT DESK COORDINATOR EXAM: BI BREAST SCREENING BILATERAL WITH TOMOSYNTHESIS [...] ASSESSMENT: BI-RADS: 1: Negative. Authorizing ProviderResult TypeResult StatusAnn Martínez P.A.-C.[place] BI PROCEDURESFinal Result * COLONOSCOPY (03/17/2021 1:29 PM FRONT DESK COORDINATOR)Anatomical RegionLateralityModalityOther Specimen (Source)Anatomical Location / LateralityCollection Method / Volume Collection TimeReceived Time Narrative Procedure Note Tracie Valencia M.D. - 03/17/2021 1:29 PM CST [facility] [place] [facility] Patient Name: Katie Ahmadi Procedure Date: 03/17/2021 1:29 PM Date of : 1960 Age: 60 Gender: Female Procedure: Colonoscopy Providers: Pat Mejia (OrderingProvider) Referring Provider: Pat Leon Pre-op Diagnoses: Last colonoscopy: December 2017, Follow-up for history of adenomatous polyps in the colon Post-op Diagnoses: - There was significant looping of the colon. - Redundant colon. - One 4 mm polyp in the distal transverse colon, removed with a cold snare. Resected and retrieved. Recommendation: - Await pathology results. - Repeat colonoscopy date to be determined after pending pathology results are reviewed. - Follow up recommendations for patients with polyps identifiedduring colonoscopy are impacted by several factors including polyp characteristics (size, number and histology), adequacy of colonic preparation and pertinent family history. For [facility] providers, detailed recommendations are available as an AskMayoExpert CareProcess Model: <[email or web address] There may be some circumstances, specifically those patients with a personal or family history of significant colorectal neoplasms where these guidelines may not apply. Consider consultation in Gastroenterology for all other polyp findings or for patients who are not at average risk. - PATHOLOGY/MICROBIOLOGY FOLLOW-UP: The ordering provider isresponsible for reviewing results from specimens obtained during this endoscopic procedure and communicating the findings to the patient. If guidanceis needed for interpreting endoscopic findings or pathology results,please consider a gastroenterology e-consult. - We will call you with the final pathology report once it isavailable. Findings: The perianal examination was normal. Questionable retroflexed uterus versus uterine fibroid with a retroflexed uterus was palpated by digital rectal exam. The recto-sigmoid colon and distal sigmoid colon revealed moderately excessive looping. The sigmoid colon and descending colon were significantly redundant. Advancing the scope required applying abdominal pressure. A 4 mm polyp was found in the distal transverse colon. The polyp was sessile. The polyp was removed with a cold snare. Resection and retrieval were complete. Medicines: Monitored Anesthesia Care Estimated Blood Loss: Estimated blood loss was minimal. Complications: No immediate complications. Procedure Details: The patient was seen, evaluated, and history reviewed. Airway and heart and lung exams were performed and were satisfactory for plannedsedation care. The risks, benefits and alternatives for the procedure and sedation were discussed andinformed consent was obtained. A procedural pause was conducted in the presence of assisting personnelto verify the correct patient identity and procedureto be performed. Throughout the procedure, the patient's blood pressure, pulse, and oxygen saturations were monitored continuously. The Colonoscope was introduced under directvision through the anus and advanced to the cecum, identified by appendiceal orifice and ileocecal valve. The colonoscopy was somewhat difficult dueto a redundant colon and significant looping. Successful completion of the procedure was aidedby applying abdominal pressure. The patienttolerated the procedure well. The quality of the bowel preparation was evaluated using the BBPS ([place] Bowel Preparation Scale) with scores of: RightColon = 2 (minor amount of residual staining, small fragments of stool and/or opaque liquid, butmucosa seen well), Transverse Colon = 3 (entire mucosaseen well with no residual staining, small fragmentsof stool or opaque liquid) and Left Colon = 2 (minor amount of residual staining, small fragments of stool and/or opaque liquid, but mucosa seenwell). The total BBPS score equals 7. The ileocecalvalve, appendiceal orifice, and rectum werephotographed. Sedation: No sedation administered. Dr. Tracie Valencia, 03/17/2021 1:35:25 PM This report has been signed electronically. Number of Addenda: 0 Note Initiated On: 03/17/2021 1:29 PM Authorizing ProviderResult TypeResult StatusPat Lin C.N.P., F.N.P., R.N.GI PROCEDURE ORDERABLESFinal Result from Last 3 Months or Most Recently Relevant to Health Maintenance Insurance Advance Directives For more information, please contact: [phone] * Full Code (Latest Code Status on File) Date ActivatedDate HrhezyvmlrtSpbevuqk74/27/2021 1:39 PM03/17/2021 4:10 PM QuestionAnswerCommentsFull Code:* Not Discussed Due to:* Patient not available * Full Code Date ActivatedDate GzqsvxvskjyVbktzzgt78/27/2021 10:57 AM03/17/2021 1:39 PM QuestionAnswerCommentsFull Code:* Not Discussed Due to:* Patient not available * Full Code Date ActivatedDate OmqmmxfhcdvYowfihxt73/29/2018 2:50 PM10 5:32 PM QuestionAnswerCommentsFull Code:* Not Discussed Due to:* Patient not available * Full Code Date ActivatedDate FcqyorxajcuLofvqzvx13/29/2018 11:30 AM01/17/2018 2:50 PM QuestionAnswerCommentsFull Code:* Not Discussed Due to:* Patient not available Care Teams Team MemberRelationshipSpecialtyStart DateEnd Date Elsewhere, Pcp PCP - GeneralInternal Elywlumw47/8/21
--- OUTSIDE RECORDS SUMMARY | 2025-03-18 04:21 | XMS_ITS | Encounter Summary ---
Author Organization [facility] Address [address] [place] [address] [address] [place] [address] Care Team Providers Care Ager Operator Name Role Phone Ann Martínez Primary Care Provider [phone] Ann Martínez Unavailable [phone] Encounter Details DateTypeDepartmentCare Team (Latest Contact Info)Awmjhrzvzol25/11/2025Telephone [facility] [address] [place] [address] Ann Martínez PA [facility] [place] [address] [place] [address] Social History Tobacco UseTypesPacks/DayYears UsedDateSmoking Tobacco: FormerCigarettes0.311 [...] otherwise physically hurt by your partner or ex-partner?No11/12/2025Within the last year, have you been raped [...] week01/31/2025How often do you attend alevism or jain services?More than 4 times per year01/31/2025Do you belong to any clubs or organizations such as alevism groups, unions, fra29West or athletic groups, or school groups?Yes 01/31/2025How often do you attend meetings of the clubs or organizations you belong to?More than 4 times per year01/31/2025re you , , , , never , or living with a partner?Jzbkxbx5201/31/2025 AUDIT-CAnswerDate RecordedFrequency of Alcohol ConsumptionNot on file01/31/2025 Q2: How many drinks containing alcohol do you have on a typical day when you are drinking?1 or Q3: How often do you have six or more drinks on one occasion?Never01/31/2025Overall Financial Resource Strain (CARDIA)AnswerDate RecordedHow hard is it for you to pay for the very basics like food, housing, medical care, and heating?Not hard at all01/31/2025[facility] [place] [facility] - Occupational Stress QuestionnaireAnswerDate [...] were you homeless or living in a penitentiary (including now)?No01/31/2025B1300 Health LiteracyAnswerDate RecordedHow often do you need to have someone help you when you read instructions, pamphlets, or other written material from your doctor or pharmacy?Never 01/31/2025HC UtilitiesAnswerDate RecordedIn the past 12 months has the electric, gas, oil, or water [employer] threatened to shut off services in your home?No01/31/2025buse/NeglectAnswerDate RecordedMember of Clubs or OrganizationsNot on file02/23/2025Does the patient display any signs or symptoms of abuse or neglect?No02/23/2025Sexually ActiveBirth ControlPartnersCommentsNot CurrentlyCommentsNoSex and Gender InformationValueDate RecordedSex Assigned at BirthNot on fileLegal AfvMvyfad15/11/2019 6:32 PM CSTGender Identity Not on fileSexual OrientationNot on filedocumented as of this encounter Functional Status * Do you have difficulty with walking, balance, climbing stairs, or had a fall in the last 3 months?AnswerDate of XfykmgxoggXslnghVu87/12/2025 10:49 AM GLUE REEL OPERATOR Poppy Duron LPN documented as of this encounter Nursing Notes * Karla Simpson - 03/01/2025 9:00 AM CST Sent in error, needed records REEL OPERATOR documented in this encounter Plan of Treatment DateTypeDepartmentCare Team (Latest Contact Info)Mirtvyrlsrh23/09/2026 11:15 AM CSTAppointment [facility] [address] [place] [address] Karla May, PT [address] [place] [address] documented as of this encounter Visit Diagnoses Not on filedocumented in this encounter Care Teams Team MemberRelationshipSpecialtyStart DateEnd Date Ann Martínez PA [address] [place] [address] PCP - GeneralPhysician Assistant07/08/23 Ann Martínez PA [address] [place] [address] PCP - Attributed Ufifvjmv03/25/24documented as of this encounter
--- OUTSIDE RECORDS SUMMARY | 2025-03-18 04:21 | XMS_ITS | Encounter Summary ---
Author Organization [employer] [facility] Address [address] [place] [address] [address] [place] [address] Care Team Providers Care Gwot Ia/Ilo Intelligence Support Name Role Phone Ann Martínez Primary Care Provider [phone] Ann Martínez Unavailable [phone] Reason for Visit * ReasonOnset ApbfTdlbrrcdQispfnh12/19/2025 Encounter Details DateTypeDepartmentCare Team (Latest Contact Info)Qfqyaaqsqin32/19/2025Telephone [facility] [address] [address] Ann Martínez PA [address] [place] [address] Results Social History Tobacco UseTypesPacks/DayYears UsedDateSmoking Tobacco: FormerCigarettes0.311 [...] times a week01/31/2025How often do you attend sikhism or roman catholic services?More than 4 times per year01/31/2025Do you belong to any clubs or organizations such as sikhism groups, unions, fraternal or athletic groups, or school groups?Yes 01/31/2025How often do you attend meetings of the clubs or organizations you belong to?More than 4 times per year01/31/2025re you , , , , never , or living with a partner?Yjeouct7201/31/2025 AUDIT-CAnswerDate RecordedFrequency of Alcohol ConsumptionNot on file01/31/2025 Q2: How many drinks containing alcohol do you have on a typical day when you are drinking?1 or Q3: How often do you have six or more drinks on one occasion?Never01/31/2025Overall Financial Resource Strain (CARDIA)AnswerDate RecordedHow hard is it for you to pay for the very basics like food, housing, medical care, and heating?Not hard at all01/31/2025[facility] [place] of Occupational Health - Occupational Stress QuestionnaireAnswerDate [...] RecordedIn the past 12 months has the [employer], gas, oil, or water [employer] threatened to shut off services in your home?No01/31/2025buse/NeglectAnswerDate RecordedMember of Clubs or OrganizationsNot on file01/31/2025Does the patient display any signs or symptoms of abuse or neglect?No01/31/2025Sexually ActiveBirth ControlPartnersCommentsNot CurrentlyCommentsNoSex and Gender InformationValueDate RecordedSex Assigned at BirthNot on fileLegal CtoTewqke78/11/2019 6:32 PM CSTGender Identity Not on fileSexual OrientationNot on filedocumented as of this encounter Functional Status * Do you have difficulty with walking, balance, climbing stairs, or had a fall in the last 3 months?AnswerDate of BasvlmyffpBvfverNb36/12/2025 10:49 AM MEAT WASHER Poppy Duron LPN documented as of this encounter Nursing Notes * Loretta Wright RN - 02/07/2025 3:29 PM CST Patient returned call. She was informed of results. She notes she had not gotten lab results from last week yet. She was sent a [facility] message with results but has not read them. I discussed lab results with her. She has no questions at this time. WASHER * Loretta Wright RN - 02/07/2025 2:13 PM CST Attempted to call patient, no answer. Left a message requesting a call back. Phone number provided. WASHER * Ann Martínez PA - 02/07/2025 1:48 PM CST Can you please let her know that her mammogram was within normal limits. Repeat mammogram in 1 year. Her DEXA scan showed normal bone density. Thank you! WASHER documented in this encounter Plan of Treatment DateTypeDepartmentCare Team (Latest Contact Info)Lfevsueykeg86/09/2026 11:15 AM CSTAppointment [facility] [address] [place] [address] Karla May, PT [address] [place] [address] documented as of this encounter Visit Diagnoses Not on filedocumented in this encounter Care Teams Team MemberRelationshipSpecialtyStart DateEnd Date Ann Martínez PA [address] [place] [address] PCP - GeneralPhysician Assistant07/08/23 Ann Martínez PA [address] [place] [address] PCP - Attributed Istfgizv22/25/24documented as of this encounter
--- OUTSIDE RECORDS SUMMARY | 2025-03-18 04:21 | XMS_ITS | Encounter Summary ---
Author Organization [employer] [facility] Address [address] [place] [address] [address] [place] [address] Care Team Providers Care Nail Puller Name Role Phone Ann Martínez Primary Care Provider [phone] Ann Martínez Unavailable [phone] Encounter Details DateTypeDepartmentCare Team (Latest Contact Info)Wvefakbhheu66/11/2025Telephone [facility] [address] [place] [id number] Ann Martínez PA [address] [place] [address] Social History Tobacco UseTypesPacks/DayYears UsedDateSmoking Tobacco: FormerCigarettes0.311 [...] times a week01/31/2025How often do you attend zoroastrianism or mosque services?More than 4 times per year01/31/2025Do you belong to any clubs or organizations such as zoroastrianism groups, unions, fraUniversity of [place] or athletic groups, or school groups?Yes 01/31/2025How often do you attend meetings of the clubs or organizations you belong to?More than 4 times per year01/31/2025re you , , , , never , or living with a partner?Wxvtmzm2401/31/2025 AUDIT-CAnswerDate RecordedFrequency of Alcohol ConsumptionNot on file01/31/2025 Q2: How many drinks containing alcohol do you have on a typical day when you are drinking?1 or Q3: How often do you have six or more drinks on one occasion?Never01/31/2025Overall Financial Resource Strain (CARDIA)AnswerDate RecordedHow hard is it for you to pay for the very basics like food, housing, medical care, and heating?Not hard at all01/31/2025[facility] [place] of Occupational Health - Occupational Stress QuestionnaireAnswerDate [...] were you homeless or living in a retirement (including now)?No01/31/2025B1300 Health LiteracyAnswerDate RecordedHow often do [...] InformationValueDate RecordedSex Assigned at BirthNot on fileLegal GssArtijv30/11/2019 6:32 PM CSTGender Identity Not on fileSexual OrientationNot on filedocumented as of this encounter Functional Status * Do you have difficulty with walking, balance, climbing stairs, or had a fall in the last 3 months?AnswerDate of EtepgixdyfRkiygwZh03/12/2025 10:49 AM JOB DEVELOPER Poppy Duron LPN documented as of this encounter Nursing Notes * Zita George RN - 03/01/2025 3:16 PM CST Patient calls back and notified of YODIT Garcia recommendations for stretching, walking, and heat/ice. Patient verbalizes understanding. DEVELOPER * Zita George RN - 03/01/2025 2:15 PM CST I attempted to call patient, no answer. Left message to call the clinic, number provided. DEVELOPER * Ann Martínez PA - 03/01/2025 1:42 PM CST Recommend stretching of the hamstring, increasing her walking distance gradually. Would also recommend light massage of the area, heat, ice. Thank you! DEVELOPER * Lexx Ha - 03/01/2025 9:16 AM CST Patient can't get into therapy for awhile, asking if Ann has any home exercises for her. DEVELOPER documented in this encounter Plan of Treatment DateTypeDepartmentCare Team (Latest Contact Info)Pkaezerdagy88/09/2026 11:15 AM CSTAppointment [facility] [address] [place] [address] Karla May, PT [address] [place] [address] documented as of this encounter Visit Diagnoses Not on filedocumented in this encounter Care Teams Team MemberRelationshipSpecialtyStart DateEnd Date Ann Martínez PA [address] [place] [address] [place] [address] PCP - GeneralPhysician Assistant07/08/23 Ann Martínez PA [address] [place] [address] [place] [address] PCP - Attributed Gorilzug33/25/24documented as of this encounter
--- OUTSIDE RECORDS SUMMARY | 2025-03-18 04:21 | XMS_ITS | Encounter Summary ---
Author Organization [employer] [facility] Address [address] [place] [address] [address] [place] [address] Care Team Providers Care Film Sorter Name Role Phone Ann Martínez Primary Care Provider [phone] Ann Martínez Unavailable [phone] Encounter Details DateTypeDepartmentCare Team (Latest Contact Info)Ocusqzremzs30/12/2025Results Follow-Up [facility] [address] [place] [address] Ann Martínez PA [address] [place] [address] LAB ONLY-COMPLETE BLOOD COUNT WITH DIFFERENTIAL, LIPID PANEL, COMPREHENSIVE METABOLIC PANEL, Additional followed-up results: 2 Social History Tobacco UseTypesPacks/DayYears UsedDateSmoking Tobacco: FormerCigarettes0.311 [...] times a week01/31/2025How often do you attend jewish or jew services?More than 4 times per year01/31/2025Do you belong to any clubs or organizations such as jewish groups, unions, [employer] or athletic groups, or school groups?Yes 01/31/2025How often do you attend meetings of the clubs or organizations you belong to?More than 4 times per year01/31/2025re you , , , , never , or living with a partner?Kveobbv5601/31/2025 AUDIT-CAnswerDate RecordedFrequency of Alcohol ConsumptionNot on file01/31/2025 Q2: How many drinks containing alcohol do you have on a typical day when you are drinking?1 or Q3: How often do you have six or more drinks on one occasion?Never01/31/2025Overall Financial Resource Strain (CARDIA)AnswerDate RecordedHow hard is it for you to pay for the very basics like food, housing, medical care, and heating?Not hard at all01/31/2025[facility] [place] of Occupational Health - Occupational Stress QuestionnaireAnswerDate [...] were you homeless or living in a mcfp (including now)?No01/31/2025B1300 Health LiteracyAnswerDate RecordedHow often do you need to have someone help you when you read instructions, pamphlets, or other written material from your doctor or pharmacy?Never 01/31/2025HC UtilitiesAnswerDate RecordedIn the past 12 months has the [employer], gas, oil, or water [employer] threatened to shut off services in your home?No01/31/2025buse/NeglectAnswerDate RecordedMember of Clubs or OrganizationsNot on file01/31/2025Does the patient display any signs or symptoms of abuse or neglect?No01/31/2025Sexually ActiveBirth ControlPartnersCommentsNot CurrentlyCommentsNoSex and Gender InformationValueDate RecordedSex Assigned at BirthNot on fileLegal CpjSnkjgd99/11/2019 6:32 PM CSTGender Identity Not on fileSexual OrientationNot on filedocumented as of this encounter Functional Status * QuestionAnswerDate of AssessmentAuthorQ2: How many drinks containing alcohol do you have on a typical day when you are drinking?1 or 10:45 AM Poppy Mendez, LPNQ3: How often do you have six or more drinks on one occasion?Never01/31/2025 10:45 AM Poppy Mendez LPN * Do you have difficulty with walking, balance, climbing stairs, or had a fall in the last 3 months?AnswerDate of RjbpnabesaSmjviaEl39/12/2025 10:49 AM HOT BALLER Poppy Duron LPN documented as of this encounter Nursing Notes * Kaitlyn Treadwell CMA - 02/01/2025 1:39 PM CST Patient informed of results & recommendations via my chart message. BALLER * Zita George RN - 01/31/2025 2:19 PM CST Phoned patient to inform of CBC results and provider message. No further questions or concerns at this time. BALLER * Zita George RN - 01/31/2025 2:12 PM CST I attempted to call patient, no answer. Left message to call the clinic, number provided. BALLER * Zita George RN - 01/31/2025 2:11 PM CST ----- Message from Ann Martínez sent at 01/31/2025 12:31 PM HOT BALLER ----- Can you please let the patient know that their CBC was within normal limits. No anemia, normal white blood cell count, normal platelet count. Thank you! BALLER documented in this encounter Plan of Treatment DateTypeDepartmentCare Team (Latest Contact Info)Vhgbxukfzjr07/09/2026 11:15 AM CSTAppointment [facility] [address] [place] [address] Karla May, PT [address] [place] [address] documented as of this encounter Visit Diagnoses Not on filedocumented in this encounter Care Teams Team MemberRelationshipSpecialtyStart DateEnd Date Ann Martínez PA [address] [place] [address] PCP - GeneralPhysician Assistant07/08/23 Ann Martínez PA [address] [facility] [place] [address] PCP - Attributed Nasxaqfj14/25/24documented as of this encounter
--- OUTSIDE RECORDS SUMMARY | 2025-03-18 04:21 | XMS_ITS | Clinical Summary ---
Author Organization [employer] Address [address] [place] [address] [address] [place] [address] Care Team Providers Care Player Piano Technician Name Role Phone Ann Martínez Primary Care Provider [phone] Ann Martínez Unavailable [phone] Allergies No known active allergies Medications MedicationSigDispense QuantityRefillsLast FilledStart DateEnd DateStatus biotin 10 mg/mL SUSP Take 1 mL (10 mg) by mouth 1 time per dayActive CALCIUM-VITAMIN D PO Take 1 tablet by mouth 1 time per dayActive Multiple Vitamin (MULTIVITAMIN ADULT PO) Take 1 tablet by mouth 1 time per day06/11/2016Active vitamin D3, cholecalciferol, (D2000 ULTRA STRENGTH) 50 mcg (2000 unit) capsule Take 1 capsule (2,000 Units) by mouth 1 time per dayActive ferrous sulfate (65 MG FE PER 325 MG TABLET) 325 mg tablet Take 1 tablet (325 mg) by mouth 1 time per dayActive polyethylene glycol (MIRALAX) 17 g packet Take 1 packet (17 g) by mouth 1 time a day as neededActive dehydroepiandrosterone (DHEA) 25 MG TABS tablet Take 1 tablet (25 mg) by mouth 1 time per dayActive magnesium oxide 250 MG TABS Take 1 tablet (250 mg) by mouth 1 time per dayActive levothyroxine 50 mcg tablet Indications:Hypothyroidism (acquired)Take 1 tablet (50 mcg) by mouth 1 time a day before breakfast 90 tablet 4Active liothyronine (CYTOMEL) 5 MCG TABS Indications:Hypothyroidism (acquired)Take 1 tablet (5 mcg) by mouth 2 times a day 180 tablet 5Active cranberry-vitamin c (AZO) 250-30 MG tablet Take 1 tablet by mouth 1 time per dayActive NIFEdipine (ADALAT CC) 30 mg SR tablet (24 hr) Take 1 tablet (30 mg) by mouth 1 time per dayActive acetaminophen (TYLENOL) 500 mg tablet Take 2 tablets (1,000 mg) by mouth every 6 hours as neededActive naproxen (NAPROSYN) 500 mg tablet Indications:Partial hamstring tear, initial encounterTake 1 tablet (500 mg) by mouth 2 times a day with meals 60 tablet ctive Active Problems ProblemNoted DateDiagnosed DatePain in right zggeiyjz93/21/2024aynaud's disease without bexyftqv91/21/2024Polyp of colon03/17/20217209Fyynkusorhkylo05/23/2021 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/18/20186129Ldunzkuawt91/27/2019Refraction rjlaqhcz97/27/2019Vitreous dtkhubzl61/27/2019Zonular traction tuft of peripheral nrntum5005/18/2018 Encounters DateTypeDepartmentCare IadeDublkpdongt59/11/2025Telephone [facility] [address] [facility] [place] [address] Ann Martínez PA 03/01/2025Telephone [address] [address] Ann Martínez PA 02/23/2025 11:00 AM CSTOffice Visit [facility] [address] [place] [place] [address] Ann Martínez PA Partial hamstring tear, initial encounter (Primary Dx) Discharge Disposition: Home, Self Care02/07/2025Telephone [facility] [address] [place] [address] Ann Martínez PA Iljqulv0902/01/2025 11:50 AM CSTErroneous Encounter [facility] [address] [facility] [place] [address] Omi Eric MD Encounters for administrative purpose (Primary Dx) Discharge Disposition: Home, Self Care01/31/2025 11:00 AM CSTOffice Visit [address] [place], [place] [address] Ann Martínez PA Routine general medical examination at a health care facility (Primary Dx); Hypothyroidism (acquired); Raynaud's disease without gangrene; History of colon polyps; Screening, lipid; Screening for osteoporosis; Postmenopause; Screening mammogram for breast cancer; Chronic pain of left knee; Finger pain, right Discharge Disposition: Home, Self Care01/31/2025Results Follow-Up [address] [place], [place] [address] Ann Martínez PA LAB ONLY-COMPLETE BLOOD COUNT WITH DIFFERENTIAL, LIPID PANEL, COMPREHENSIVE METABOLIC PANEL, Additional followed-up results: 4:00 PM CDTOffice Visit [address] [place] [address] Brianna Brown, NEONATAL NURSE PRACTITIONER Sore throat (Primary Dx) Discharge Disposition: Home, Self Care12/20/2024Results Follow-Up [place] [address] [place] [address] Brianna Brown, NEONATAL NURSE PRACTITIONER GROUP A STREPTOCOCCUS BY NATfrom Last 3 Months Immunizations ImmunizationAdministration DatesNext DueFLUCELVAX, bdmlxygtadrv37/06/2017 INFLUENZA SINGLE DOSE 0.5ML 6 MONTHS AND UP01/10/2024INFLUENZA VACCINE ADJUVANT(FLUAD) 65 YEARS AND UP01/31/2025Influenza Split Quadrivalent With Ufmeshq4201/11/2019Influenza Vaccine,ctyetqyduvx33/23/2015,12/13/2013,12/10/2011, 12/12/2009,12/17/2008,01/27/2002Moderna COVID-19 Vaccine (Red Top)12 years and up03/09/2021,06/20/2020,1Pfizer COVID-19 Vaccine (COMIRNATY) 12 Years And Up01/10/2024TD,adsorbed, 7 years and up08/13/2003TDAP1Zoster Recombinant (Shingrix)06/02/2018,03/04/2018influenza split quadrivalent PF 01/02/2020,12/23/2019,01/10/2018,03/01/2017 Family History Medical HistoryRelationCommentsSkin Cancer (non melanomatous)FatherChronic Obstructive Pulmonary DiseaseMotherColon PolypsMotherColorectal CancerMother RelationStatusCommentsFatherAliveMotherAlive Social History Tobacco UseTypesPacks/DayYears UsedDateSmoking Tobacco: FormerCigarettes0.311 Started: 1976Smokeless Tobacco: Never Tobacco Cessation:Counseling Given: Not Answered Comments:No vaping Alcohol UseStandard Drinks/WeekCommentsYes0 (1 standard [...] otherwise physically hurt by your partner or ex-partner?01/31/2025Within the last year, have you been raped or forced to have any kind of sexual activity by your partner or ex-partner?No01/31/2025 Social Connection and Isolation PanelAnswerDate RecordedIn a typical week, how many times do you talk on the phone with family, friends, or neighbors?Twice a week01/31/2025How often do you get together with friends or relatives?Three times a week01/31/2025How often do you attend spiritism or adventism services?More than 4 times per year01/31/2025Do you belong to any clubs or organizations such as spiritism groups, unions, fraternal or athletic groups, or school groups?Yes 01/31/2025How often do you attend meetings of the clubs or organizations you belong to?More than 4 times per year01/31/2025re you , , , , never , or living with a partner?Refbkek0201/31/2025 AUDIT-CAnswerDate RecordedFrequency of Alcohol ConsumptionNot on file01/31/2025 Q2: How many drinks containing alcohol do you have on a typical day when you are drinking?1 or Q3: How often do you have six or more drinks on one occasion?Never01/31/2025Overall Financial Resource Strain (CARDIA)AnswerDate RecordedHow hard is it for you to pay for the very basics like food, housing, medical care, and heating?Not hard at all01/31/2025[facility] [place] [facility] - Occupational Stress QuestionnaireAnswerDate [...] were you homeless or living in a skilled nursing (including now)?No01/31/2025B1300 Health LiteracyAnswerDate RecordedHow often do you need to have someone help you when you read instructions, pamphlets, or other written material from your doctor or pharmacy?Never 01/31/2025HC UtilitiesAnswerDate RecordedIn the past 12 months has the [employer], gas, oil, or water [employer] threatened to shut off services in your home?No01/31/2025buse/NeglectAnswerDate RecordedMember of Clubs or OrganizationsNot on file02/23/2025Does the patient display any signs or symptoms of abuse or neglect?No02/23/2025Sexually ActiveBirth ControlPartnersCommentsNot CurrentlyCommentsNoSex and Gender InformationValueDate RecordedSex Assigned at BirthNot on fileLegal BigKtwryw74/11/2019 6:32 PM CSTGender Identity Not on fileSexual OrientationNot on file Last Filed Vital Signs Vital SignReadingTime TakenCommentsBlood Biyhytem092/7602/23/2025 10:55 AM VENDOR RELATIONSHIP MANAGER Xgfmb637002/23/2025 10:55 AM FVNFbyvrnzsxtn42.5 ??C (97.7 ??F)02/23/2025 10:55 AM CSTRespiratory Jeve014604/26/2024 10:55 AM CSTOxygen Usgkopvtdw31%12/20/2024 3:40 PM CDTInhaled Oxygen Concentration--Jzsplp92 kg (158 lb 11.2 oz)02/23/2025 10:55 AM PSFRkoyyo862.3 cm (5' 9)01/31/2025 10:35 AM CSTBody Mass Index23.44 01/31/2025 10:35 AM VENDOR RELATIONSHIP MANAGER Plan of Treatment DateTypeDepartmentCare Team (Latest Contact Info)Wuypmfisjal59/09/2026 11:15 AM CSTAppointment [facility] [address] [place], [place] [id number] Karla aMy, PT [address] [place] [address] Health MaintenanceDue DateLast DoneCommentsPneumococcal Vaccine 50yr + (1 of 1 - PCV)06/23/2009Covid-19 Vaccine (5 - 2024- season), 03/09/2021, 06/20/2020, Additional history existsTDAP/TD VACCINE (2 - Td or Tdap), 08/13/2003Medicare Yearly Wellness Visit01/31/2026 01/31/2025TSH Every Year, 01/10/2024, 03/04/2023Mammogram , 02/07/2025, 04/07/2023, Additional history existsPap Smear /2Diabetes Qzsliqfhp03/02/2025, 01/10/2024, 03/04/2023Lipid Qvvbifoyv29, 01/10/2024, 03/04/2023olorectal Cancer Pfbamxtdc86/, 01/17/2018RSV Vaccine, Adult (1 - 1-dose 75+ series)06/23/2034DEXA/Heel Scan, 02/07/2025Zoster NlfkjrhUdghnghbz62/14/2019, 03/04/2018[employer] Directive document Sizoewznd79/12/2025Influenza PvziqvsLfmhluvrt50/12/2025, 01/10/2024, 01/02/2020, Additional history existsHIV One Time Screening Ages 15-65DiscontinuedHepatitis B VaccineAged OutNo longer eligible based on patient's age to complete this topicHepatitis C ScreeningDiscontinued Procedures Procedure NamePriorityDate/TimeAssociated DiagnosisCommentsDEXA SCANRoutine 02/07/2025 MAMMOGRAM GAY DIGITAL SCREENING OJYOgwdrrw83/19/2025 CFJBhcvooz39/12/2025 11:33 AM VENDOR RELATIONSHIP MANAGER Hypothyroidism (acquired) FREE M0Gosiyjd30/12/2025 11:33 AM VENDOR RELATIONSHIP MANAGER Hypothyroidism (acquired) THYROID PANEL (FT4/TSH)Ukzjbay9301/31/2025 11:33 AM VENDOR RELATIONSHIP MANAGER Hypothyroidism (acquired) LAB ONLY-COMPLETE BLOOD COUNT WITH TYLUWMYRMZUFGsgarfw74/12/2025 11:33 AM VENDOR RELATIONSHIP MANAGER Raynaud's disease without gangrene COMPREHENSIVE METABOLIC TJCNFEcmwzuj88/12/2025 11:33 AM VENDOR RELATIONSHIP MANAGER Raynaud's disease without gangrene LAB ONLY-COMPLETE BLOOD COUNT WITH QYSVSZLYKAYDSeemcri41/12/2025 11:33 AM VENDOR RELATIONSHIP MANAGER Raynaud's disease without gangrene LIPID RQFDTKydmheo96/12/2025 11:33 AM VENDOR RELATIONSHIP MANAGER Screening, lipid GROUP A STREPTOCOCCUS BY AKIOlifjzw96/01/2025 4:17 PM CDT Sore throat LIQUID BASED PAP RUSRBobegjd18/13/2022 KVQGRHFNVSTOxrpssb07/27/2021 from Last 3 Months or Most Recently Relevant to Health Maintenance Results * MAMMOGRAM GAY DIGITAL SCREENING KINDRA (02/07/2025)Anatomical RegionLaterality ModalityBreastBilateralMammography Narrative 02/07/2025 See [facility] everywhere for results. Provider has reviewed. Authorizing ProviderResult TypeResult StatusAnn Woody PAMAMMOGRAPHYFinal Result * DEXA SCAN (02/07/2025)Anatomical RegionLateralityModalitySpineMammography Narrative 02/07/2025 See [facility] everywhere for results. Provider has reviewed results. Authorizing ProviderResult TypeResult StatusKanay Woody PAMAMMOGRAPHYFinal Result * LAB ONLY-COMPLETE BLOOD COUNT WITH DIFFERENTIAL (01/31/2025 11:33 AM VENDOR RELATIONSHIP MANAGER) ComponentValueRef RangeTest MethodAnalysis TimePerformed AtPathologist SignatureWBC4.84.0 - 11.0 K/uL01/31/2025 12:06 PM [facility] INC -FAIRMONTRBC4.11 3.80 - 5.30 M/uL01/31/2025 12:06 PM [facility] INC -AKRPEEKIOcfywkinmd76.211.5 - 15.8 g/dL01/31/2025 12:06 PM [facility] INC -UWPTEYBYGrbbhptrez03.735.0 - 45.0 % 01/31/2025 12:06 PM [facility] INC -MYHCFXWEXST07.980.0 - 98.0 fL01/31/2025 12:06 PM CSTD INC -UTVMZUDVAPX25.725.5 - 34.0 pg01/31/2025 12:06 PM [facility] INC -JKHAZLNEBDGN37.231.5 - 36.5 g/dL01/31/2025 12:06 PM [facility] RDW-CV13.211.5 - 15.5 %01/31/2025 12:06 PM CSTU[facility] INC -FAIRMONTRDW-SD42.835.5 - 50.0 fl01/31/2025 12:06 PM C[facility] INC -FAIRMONTPlatelet Wopwi212748 - 400 K/uL01/31/2025 12:06 PM [facility] INC [...] Bands) 3,300/uL01/31/2025 12:06 PM [facility] -FAIRMONTNeutrophils Xfnvvfr22.7% 01/31/2025 12:06 PM C[facility] INC -FAIRMONTLymphocytes Vpqldyg86.3%01/31/2025 12:06 PM [facility] -FAIRMONTMonocytes Percent9.1%01/31/2025 12:06 PM [facility] INC -FAIRMONTImmature Granulocyte Percent0.2%01/31/2025 12:06 PM CSTU[facility] INC -FAIRMONTEosinophils Percent2.5%01/31/2025 12:06 PM [facility] Basophil Percent1.2%01/31/2025 12:06 PM CSTD INC -FAIRMONTSpecimen (Source) Anatomical Location / LateralityCollection Method / VolumeCollection Time Received TimeBloodBLOOD SPECIMEN / UnknownVenipuncture / Vqldthb4901/31/2025 11:33 AM CST01/31/2025 11:33 AM VENDOR RELATIONSHIP MANAGER Narrative Authorizing ProviderResult TypeResult StatusAnn Martínez PALAB ONLY ORDERS Final ResultPerforming OrganizationAddressCity/State/ZIP CodePhone Number [facility] [address] [place] [address] * (ABNORMAL) LIPID PANEL (01/31/2025 11:33 AM VENDOR RELATIONSHIP MANAGER)ComponentValueRef RangeTest MethodAnalysis TimePerformed AtPathologist OmoxxtwvgSnqlrddbndt9179 - 199 mg/dL01/31/2025 3:14 PM [facility] [place] WVHUOPjbhdpzjwqkl968 - 149 mg/dL 01/31/2025 3:14 PM [facility] [place] GANBRBCM95(H)40 - 60 mg/dL01/31/2025 3:14 PM [facility] - [place] EARTHLDL Wwzgxq818 - 99 mg/dL01/31/2025 3:14 PM [facility] [place] EARTHSpecimen (Source)Anatomical Location / LateralityCollection Method / VolumeCollection TimeReceived TimeBloodBLOOD SPECIMEN / Unknown Venipuncture / Gjodblj0501/31/2025 11:33 AM CST01/31/2025 11:33 AM VENDOR RELATIONSHIP MANAGER Narrative Authorizing ProviderResult TypeResult StatusAnn Martínez PALAB BLOODFinal ResultPerforming OrganizationAddressCity/State/ZIP CodePhone Number [facility] [employer] [address] [place] [address] * TSH (01/31/2025 11:33 AM VENDOR RELATIONSHIP MANAGER)ComponentValueRef RangeTest MethodAnalysis Time Performed AtPathologist SignatureTSH1.450.55 - 4.78 uIU/mL02/01/2025 12:52 PM [facility] [place] EARTHSpecimen (Source)Anatomical Location / Laterality Collection Method / VolumeCollection TimeReceived TimeBloodBLOOD SPECIMEN / UnknownVenipuncture / Awbfodk4101/31/2025 11:33 AM CST02/01/2025 12:26 PM VENDOR RELATIONSHIP MANAGER Narrative Authorizing ProviderResult TypeResult StatusAnn Martínez [facility] BLOODFinal ResultPerforming OrganizationAddressty/State/ZIP CodePhone Number [facility] [employer] [address] [place] [address], [place] [address] * FREE T4 (01/31/2025 11:33 AM VENDOR RELATIONSHIP MANAGER)ComponentValueRef RangeTest MethodAnalysis TimePerformed AtPathologist SignatureT4 Free1.10.9 - 1.8 ng/dL02/01/2025 12:52 PM [facility] [place] EARTHSpecimen (Source)Anatomical Location / Laterality Collection Method / VolumeCollection TimeReceived TimeBloodBLOOD SPECIMEN / UnknownVenipuncture / Mneiths3501/31/2025 11:33 AM CST02/01/2025 12:26 PM VENDOR RELATIONSHIP MANAGER Narrative Authorizing ProviderResult TypeResult StatusAnn Martínez PALAB BLOODFinal ResultPerforming OrganizationAddressCity/State/ZIP CodePhone Number [facility] [employer] [address] [place] [address] * (ABNORMAL) COMPREHENSIVE METABOLIC PANEL (01/31/2025 11:33 AM VENDOR RELATIONSHIP MANAGER)Component ValueRef RangeTest MethodAnalysis TimePerformed AtPathologist SignatureGlucose 111(H)74 - 106 mg/dL01/31/2025 3:13 PM [facility] [place] HLESQUFP210 - 23 mg/dL01/31/2025 3:13 PM [facility] [place] EARTHCreatinine0.800.55 - 1.02 mg/dL 01/31/2025 3:13 PM [facility] [place] EARTHBUN/Creatinine Ratio12.510.0 - 25.0 01/31/2025 3:13 PM [facility] [place] FZUTFVxbnot594116 - 145 meq/L104/02/2024 3:13 PM [facility] EARTHPotassium4.03.4 - 4.5 meq/L104/02/2024 3:13 PM [facility] [place] JZCSFGkbmaxdh63659 - 107 meq/L104/02/2024 3:13 PM [facility] [place] FIAUGUX02988 - 31 meq/L104/02/2024 3:13 PM [facility] [place] EARTHAnion Gap with K9(L)10 - 20 meq/L104/02/2024 3:13 PM [facility] [place] EARTHCalcium 9.78.7 - 10.4 mg/dL01/31/2025 3:13 PM [facility] [place] EARTHProtein Total7.0 5.7 - 8.2 g/dL01/31/2025 3:13 PM [facility] EARTHAlbumin4.43.2 - 4.8 g/dL01/31/2025 3:13 PM [facility] EARTHAlkaline Zqnmijyayif9485 - 116 U/L104/02/2024 3:13 PM [facility] [place] EARTHAST - GBDY428 - 34 U/L104/02/2024 3:13 PM [facility] [place] EARTHALT - ZSAH3018 - 49 U/L104/02/2024 3:13 PM VENDOR RELATIONSHIP MANAGER [facility] - [place] EARTHBilirubin Total0.50.3 - 1.2 mg/dL01/31/2025 3:13 PM [facility] [place] PXUYCAeu92Efsze37/12/2025 3:13 PM CSTUHD [employer] RICHARDeGFRcr() 82>=60 mL/min/1.70c74601/31/2025 3:13 PM [facility] [employer] RICHARDComment: Estimated GFR calculated using the 2020 CKD-EPI creatinine equationSpecimen (Source)Anatomical Location / LateralityCollection Method / VolumeCollection TimeReceived TimeBloodBLOOD SPECIMEN / UnknownVenipuncture / Rzdjdoz7501/31/2025 11:33 AM CST01/31/2025 11:33 AM VENDOR RELATIONSHIP MANAGER Narrative Authorizing ProviderResult TypeResult StatusAnn MartinLifecare Hospital of [facility] BLOODFinal ResultPerforming OrganizationAddressCity/State/ZIP CodePhone Number [facility] [employer] [address] [place] [address] * GROUP A STREPTOCOCCUS BY BELÉN (12/20/2024 4:17 PM CDT)ComponentValueRef Range Test MethodAnalysis TimePerformed AtPathologist SignatureStrep Group A by Nucleic Acid DetectionNot DetectedNot Rsacrbpy22/01/2025 4:50 PM CDTCANCER TREATMENT CENTERS OF AMERICAINOCENCIAUNIVERSITY HEALTH LAKEWOOD MEDICAL CENTERpecimen (Source)Anatomical Location / LateralityCollection Method / VolumeCollection TimeReceived TimeSwabSTRUCTURE OF ANTERIOR REGION OF NECK / UnknownCollection / Odyknwr5512/20/2024 4:17 PM CDT1 4:17 PM CDT Narrative [facility] - 12/20/2024 4:50 PM CDT This test was performed by polymerase chain reaction (PCR) on the GeneXpert instrument. Authorizing ProviderResult TypeResult StatusBrianna Brown CNPLAB NON BLOOD Final ResultPerforming OrganizationAddressCity/State/ZIP CodePhone Number [address] [address] * LIQUID BASED PAP TEST (03/03/2022)ComponentValueRef RangeTest MethodAnalysis TimePerformed AtPathologist SignaturePAP (External Result):No Abnormality; see external documentMAYO MEDICAL LABORATORIESSpecimen (Source)Anatomical Location / LateralityCollection Method / VolumeCollection TimeReceived TimeNot ApplicableENDOCERVICAL STRUCTURE / Unknown Narrative Authorizing ProviderResult TypeResult StatusAbstract ProviderPATHOLOGYFinal ResultPerforming OrganizationAddressCity/State/ZIP CodePhone Number [facility] [address] [place] [address] * COLONOSCOPY (03/17/2021)ComponentValueRef RangeTest MethodAnalysis Time Performed AtPathologist SignatureCOLONOSCOPY (EXTERNAL RESULT)See external documents for detailsCASS CITY MEDICAL LABORATORIES Narrative Authorizing ProviderResult TypeResult StatusAbstract ProviderIP PROCEDURESFinal ResultPerforming OrganizationAddressCity/State/ZIP CodePhone Number [facility] [address] [place] [address] from Last 3 Months or Most Recently Relevant to Health Maintenance Care Teams Team MemberRelationshipSpecialtyStart DateEnd Date Ann Martínez PA [address] [place] [address] PCP - GeneralPhysician Assistant07/08/23 Ann Martínez PA [address] [place] [address] PCP - Attributed Santfppi63/25/24
--- OUTSIDE RECORDS SUMMARY | 2025-03-18 04:22 | XMS_ITS | Patient Health Record ---
Author Organization [facility] ter Address [address] [place] [address] Care Team Providers Care Lead Business Systems Analyst Name Role Phone Ann Martínez Primary Care Provider [phone] Allergies Allergen (clinical drug ingredient) Drug/Non Drug Allergy documented on EMR Reaction Allergy Type Onset Date Status Seasonal-fall (uncoded)UnknownAllergyActive Reason For Referral No Information Medications Medication SIG (Take, Route, Frequency, Duration) Notes Start Date End Date Status calcium 500 mg 1 tab once a day w/vitamn D Activemultivitamin Multiple Vitamins1 cap(s) orally once a day; Duration: 30 day(s)Activeferrous sulfate 325 mg1 tab(s) orally once a day; Duration: 30 day(s)05/06/2011ctiveMiraLax -17 g orally once a day; Duration: 7 day(s)Active biotin 300 mcg1 tab(s) orally once a day; Duration: 30 day(s)Activecollagenpo 1 cap qamNot-TakingDHEA 25mgdaily as directed poActivemagnesium 1331 tab(s) orally dailyActiveCytomel 5 mcgtake 1 tablet twice a day orally BID; Duration: 90 days ActiveSynthroid 50 mcg (0.05 mg)take 1 tablet once daily orally once a day; Duration: 90 daysActiveVitamin D3 5000 intl unitsas directed orally once a day; Duration: 30 day(s)ActiveNIFEdipine 30 mg1 tab(s) orally once a day; Duration: 30 daysActive Immunizations Vaccine Route Administration Date Status Comme nts Tdap Unknown 01/17/2015 Administered Given at [facility] an Services/Employer Shingrix 50 mg Unknown 03/04/2018 Administered Shingrix 50 yuDdekvoa90/14/2019AdministeredInfluenza (>6 mo)Ccfxlsd3803/01/2017 AdministeredInfluenza (>6 mo)Oeyhksh1701/10/2018AdministeredInfluenza (>6 mo) Vaxfnvr1901/02/2020Administered Social History alcohol screening_smart Question Answer Notes Did you have a drink containing alcohol in the p ast year? Yes How often did you have a drink containing alcohol in the past year?Two to four times a month (2 points)How many drinks did you have on a typical day when you were drinking in the past year?1 or 2 (0 points)How often did you have six or more drinks on one occasion in the past year?Never (0 points)Points2 InterpretationNegativeSection Notes: Joining bowling again and wi ll do left handed ans right shoulder is terrible. Joining bowling again and wi ll do left handed ans right shoulder is terrible. Joining bowling again and wi ll do left handed ans right shoulder is terrible. Joining bowling again and wi ll do left handed ans right shoulder is terrible. Problems Problem Type SNOMED Code ICD Code Onset Dates Problem Status W/U Status Risk Notes Problem Constipation (64524359) Constipation NOS (564.00) ActiveconfirmedProblemRaynaud's disease (518569494)Raynaud's syndrome without gangrene (I73.00)ActiveconfirmedProblemHypothyroidism (22077556)Hypothyroidism, unspecified type (E03.9)Activeconfirmed Plan Of Treatment Pending Test Test Name Order Date Mammogram screening 03/03/2022 Insurance Providers Payer Name Payer Address Payer Phone Subscriber Number Group Number Insured Name Patient Relationship to Insured Coverage Start Date Coverage End Date [facility] [address] [address] [place] [address] [id number] Katie Ahmadi Self - patient is the insured W/C [facility] TrustDONT USE THIS !!c/o Alpha Review Sonny [address] [place], [place] [phone] # [id number] gómezelf - patient is the insured Medical (General) History Medical History History ICD Code Raynaud's syndrome hypothyroidismSurgical History Surgery Date(Month/Year) Cervical discectomy ?C5-6-7 07/2003 bilat Carpal tunnel release 1998? Colonscopy 08/2011 Colonoscopy 09/2012 Colonoscopy, irregular polyps, repeat in 3 years 2017 Colonoscopy 2020 Hospitalization History Reason Date(Month/Year) vag del x 2
== END 2025-03-18 04:22 | disposition home or self-care (01) ==
PROVIDERS: Emergency Provider Family Medicine
DX: N30.90 Cystitis, unspecified without hematuria (principal)
CPT/HCPCS: 81001; 87086; 99283; 99284